=== PATIENT | female | born 1960 | race African-American/Black ===

== ENCOUNTER → 2017-06-28 | Outpatient (CLI) | payer OTHER ==
--- NOTE | 2017-06-28 15:15 | RADIOLOGY REPORT (SQ) ---
EXAM DESCRIPTION: LUMBAR SPINE COMPLETE COMPLETED DATE/TIME: 06/28/2017 1:51 pm REASON FOR STUDY: LOW BACK PAIN; LT SCIATICA M54.5 LOW BACK PAIN COMPARISON: None. NUMBER OF VIEWS: Five views including obliques. TECHNIQUE: AP, lateral, oblique, and sacral radiographic images acquired of the lumbar spine. LIMITATIONS: None. FINDINGS: MINERALIZATION: Normal. SEGMENTATION: L5 appears to represent a transitional vertebra. ALIGNMENT: Mild dextroscoliosis. VERTEBRAE: Maintained height. No fracture or worrisome bone lesion. DISCS: Preserved height. No significant osteophytes or end plate irregularity. POSTERIOR ELEMENTS: Pedicles and facets are intact. No pars defect or posterior arch defects. HARDWARE: None in the spine. PARASPINAL SOFT TISSUES: Normal. PELVIS: Intact as visualized. No fractures or worrisome bone lesions. SI joints intact. OTHER: No other significant finding. IMPRESSION: There is sacralization of L5. The study is otherwise unremarkable TECHNICAL DOCUMENTATION: JOB ID: [id number]- All Rights Reserved
== END ==
LOC: OD 13:22
PROVIDERS: ATTEND Obstetrics & Gynecology
DX: M54.42 Lumbago with sciatica, left side (principal)
CPT/HCPCS: 72110

== ENCOUNTER → 2017-07-06 | Outpatient (CLI) | payer OTHER ==
--- NOTE | 2017-07-06 18:00 | WOMENS IMAGING REPORT ---
EXAM DESCRIPTION: BILAT SCREENING MAMMO W/CAD COMPLETED DATE/TIME: 07/06/2017 7:50 am REASON FOR STUDY: SCREENING MAMMO Z12.31 ENCNTR SCREEN MAMMOGRAM FOR MALIGNANT NEOPLASM OF YELITZA COMPARISON: Multiple since 2008 TECHNIQUE: Standard craniocaudal and mediolateral oblique views of each breast recorded using digita l acquisition. LIMITATIONS: None. FINDINGS: Findings present which are benign by mammographic criteria. No suspicious masses, calcifi cations or architectural distortion. Pertinent benign findings: Benign skin calcifications. Stable asymmetrically dense tissue in the lef t upper outer quadrant as compared to studies dating back to 2008 Read with the assistance of CAD. .[facility] - R2 Cenova Version 1.3 .[facility] - R2 Cenova Version 1.3 .[facility] - R2 Cenova Version 2.4 .[facility] [place] Cenova Version 2.4 .[facility] - R2 Tele[employer] Professional Version 9.2 Benign mammographic findings may include one or more of the following: Smooth masses, popcorn/rim/co arse calcifications, asymmetries, post-procedure changes, and lesions with long-standing stability. IMPRESSION: BENIGN MAMMOGRAPHIC FINDINGS. BIRADS 2 BREAST DENSITY: c. The breasts are heterogeneously dense, which may obscure small masses. BIRAD: 2 BENIGN FINDING(S) RECOMMENDATION: ROUTINE SCREENING Please consider bilateral screening tomosynthesis in June 2018 COMMENT: The patient has been notified of the results by letter per SA requirements. Additional no tification policies are in place for contacting patient with suspicious or incomplete findings. Quality ID #[id number]: The [employer] recommends an annual screening mammogram for women aged 40 years or over. This facility utilizes a reminder system to ensure that all patients receive reminder letters, and/or direct phone calls for appointments. This includes reminders for routine scr eening mammograms, diagnostic mammograms, or other Breast Imaging Interventions when appropriate. Th is patient will be placed in the appropriate reminder system. The [employer] (ACR) has developed recommendations for screening MRI of the breast s in certain patient populations, to be used in conjunction with mammography. Breast MRI surveillanc e may be appropriate for women with more than 20% lifetime risk of developing breast cancer as deter mined by genetic testing, significant family history of the disease, or history of mantle radiation f or Hodgkins Disease. ACR Practice Guidelines 2008. TECHNICAL DOCUMENTATION: FINDING NUMBER: (1) ASSESSMENT: (1) JOB ID: [id number] [employer] [facility] [employer]- All Rights Reserved
== END ==
LOC: WI 07:01
PROVIDERS: ATTEND Obstetrics & Gynecology
DX: Z12.31 Encounter for screening mammogram for malignant neoplasm of breast (principal)
CPT/HCPCS: 77067; G0202

== ENCOUNTER 2017-08-12 11:39 | Emergency (ER) | payer OTHER ==
[2017-08-12 13:03] LABS: ABSOLUTE BASOPHILS # (AUTO) 0.1 10^3/uL (0.0-0.2); ABSOLUTE EOSINOPHILS # (AUTO) 0.2 10^3/uL (0.0-0.6); ABSOLUTE LYMPHOCYTES (AUTO) 1.5 10^3/uL (0.5-4.7); ABSOLUTE MONOCYTES (AUTO) 0.4 10^3/uL (0.1-1.4); ABSOLUTE NEUT (AUTO) 3.7 10^3/uL (1.7-8.2); EOSINOPHILS % (AUTO) 3.3 % (0-6); HEMATOCRIT 38.5 % (36.0-47.0); HEMOGLOBIN 13.4 g/dL (12.0-15.5); HGB HCT DIFFERENCE 1.7; LYMPHOCYTES % (AUTO) 25.6 % (13-45); MEAN CORPUSCULAR HEMOGLOBIN 33.3 pg (27.0-33.4); MEAN CORPUSCULAR HGB CONC 34.9 g/dL (32.0-36.0); MEAN CORPUSCULAR VOLUME 95 fl (80-97); MONOCYTES % (AUTO) 7.1 % (3-13); RED BLOOD COUNT 4.04 10^6/uL (3.72-5.28); RED CELL DISTRIBUTION WIDTH 13.8 % (11.5-14.0); WHITE BLOOD COUNT 5.9 10^3/uL (4.0-10.5)
--- NOTE | 2017-08-12 14:30 | ER Document Report ---
ED Medical Screen (RME) - General Mode of Arrival: Ambulatory Information source: Patient TRAVEL OUTSIDE OF THE [place] IN LAST 30 DAYS: No - HPI Patient complains to provider of: Syncopal episodes Onset: Other - 6 days ago Associated Symptoms: Other - see notes above <WING STEINER - Last Filed: 08/12/17 14:26> <STORM BARBER - Last Filed: 08/12/17 21:10> - General Chief Complaint: Fainting Stated Complaint: SYNCOPAL EPISODE/HEAD INJURY Time Seen by Provider: 08/12/17 12:37 Notes: 57-year-old female with history of anemia presents to the ED complaining of having 2 syncopal episodes the first 6 days ago and the second today. Patient reports that prior to both episodes she had a sneezing fit. Episodes were witnessed by family and explains that she only lost consciousness for a few seconds. Patient reports that she did hit her posterior head and left shoulder on a board. Patient complaining of headache and sinus congestion, but denies vision change, fever, vomiting, or diarrhea. Patient takes Radha and Vicks nasal rub for her sinus congestion. Patient denies history of MN or CVA. Patient is not on any blood thinning medication. (WING STEINER) - Related Data Allergies/Adverse Reactions: No Known Allergies Allergy (Verified 08/12/17 11:42) Home Medications: Current Home Medications Biotin 1 cap PO DAILY PRN 08/12/17 [History] Cyanocobalamin (Vitamin B-12) [Vitamin B-12] 1,000 mcg PO DAILY 08/12/17 [ History] Ergocalciferol (Vitamin D2) [Vitamin D] 400 unit PO DAILY 08/12/17 [History] Past Medical History - General Information source: Patient - Social History Chew tobacco use (# tins/day): No Frequency of alcohol use: Occasional Drug Abuse: None - Past Medical History Cardiac Medical History: Denies: Hx Coronary Artery Disease, Hx Heart Attack, Hx Hypertension Pulmonary Medical History: Denies: Hx Asthma, Hx Bronchitis, Hx COPD, Hx Pneumonia Neurological Medical History: Denies: Hx Cerebrovascular Accident, Hx Seizures Renal/ Medical History: Denies: Hx Peritoneal Dialysis Musculoskeltal Medical History: Denies Hx Arthritis Past Surgical History: Reports: Hx Hysterectomy - Immunizations Hx Diphtheria, Pertussis, Tetanus Vaccination: Yes <WING STEINER - Last Filed: 08/12/17 14:26> Review of Systems - Review of Systems Constitutional: No symptoms reported. denies: Fever EENT: No symptoms reported, Nose congestion, Other - sinus congestion. denies: Blurred vision, Double vision Cardiovascular: See HPI, Syncope Respiratory: No symptoms reported Gastrointestinal: No symptoms reported. denies: Diarrhea, Vomiting Genitourinary: No symptoms reported Female Genitourinary: No symptoms reported Musculoskeletal: No symptoms reported Skin: No symptoms reported Hematologic/Lymphatic: No symptoms reported Neurological/Psychological: See HPI, Lost consciousness, Headaches -: Yes All other systems reviewed and negative <WING STEINER - Last Filed: 08/12/17 14:26> Physical Exam - General General appearance: Alert In distress: None - HEENT Head: Normocephalic, Atraumatic Eyes: Normal Extraocular movements intact: Yes Pupils: PERRL - Respiratory Respiratory status: No respiratory distress Breath sounds: Normal - Cardiovascular Rhythm: Regular Heart sounds: Normal auscultation - Psychological Associated symptoms: Normal affect, Normal mood <WING STEINER - Last Filed: 08/12/17 14:26> - Vital signs Vitals: Temp Pulse Resp BP Pulse Ox 98.3 F 91 16 129/79 H 98 08/12/17 11:45 08/12/17 11:45 08/12/17 11:45 08/12/17 11:45 08/12/17 11:45 Course - Laboratory Result Diagrams: 08/12/17 12:59 08/12/17 12:59 <STEINERMONICA ANDUJARUR - Last Filed: 08/12/17 14:26> - Laboratory Result Diagrams: 08/12/17 12:59 08/12/17 14:14 <STORM BARBER - Last Filed: 08/12/17 21:10> - Re-evaluation Re-evalutation: 08/12/17 21:10 I personally performed the services described in the documentation, reviewed and edited the documentation which was dictated to the scribe in my presence, and it accurately records my words and actions. (STORM BARBER) - Vital Signs Vital signs: Temp Pulse Resp BP Pulse Ox 98.3 F 91 14 109/82 98 08/12/17 11:45 08/12/17 11:45 08/12/17 18:01 08/12/17 18:01 08/12/17 18:01 - Laboratory Laboratory results interpreted by me: 08/12/17 14:14 Chloride 109 H Total Protein 8.3 H Doctor's Discharge <WING STEINER - Last Filed: 08/12/17 14:26> <STORM BARBER - Last Filed: 08/12/17 21:10> - Discharge Clinical Impression: Syncope Qualifiers: Syncope type: unspecified Qualified Code(s): R55 - Syncope and collapse Condition: Stable Disposition: HOME, SELF-CARE Additional Instructions: Today we did not find any abnormalities. Your blood work was normal as was your CAT scan of your chest x-ray. I am still concerned by the fact that you pass out when you have sneezing fits. I would like you to have a Holter monitor. Please call Dr. Benson on Tuesday to try and set up an appointment to get a Holter monitor or an event monitor. Forms: Return to Work Referrals: ABHI DOMINGUEZ MD [Primary Care Provider] - Follow up as needed SAGRARIO BENSON MD [EMERITUS] - 08/15/17 Scribe Documentation - Scribe Written by Scribe:: Nury Johnson, 08/12/2017 1430 acting as scribe for :: Bebeto <WING STEINER - Last Filed: 08/12/17 14:26>
[2017-08-12 14:48] LABS: ALANINE AMINOTRANSFERASE 29 U/L (9-52); ALBUMIN 4.4 g/dL (3.5-5.0); ALKALINE PHOSPHATASE 102 U/L (38-126); ANION GAP 13 (5-19); ASPARTATE AMINO TRANSFERASE 27 U/L (14-36); BILIRUBIN,DIRECT 0.4 mg/dL (0.0-0.4); BILIRUBIN,TOTAL 0.7 mg/dL (0.2-1.3); BLOOD UREA NITROGEN 13 mg/dL (7-20); CALCIUM 9.6 mg/dL (8.4-10.2); CARBON DIOXIDE 22 mmol/L (22-30); CHLORIDE 109 mmol/L (98-107); CREATININE RESULT 0.67 mg/dL (0.52-1.25); GLUCOSE 78 mg/dL (75-110); POTASSIUM 4.3 mmol/L (3.6-5.0); TOTAL PROTEIN 8.3 g/dL (6.3-8.2)
--- NOTE | 2017-08-12 15:32 | RADIOLOGY REPORT (SQ) ---
EXAM DESCRIPTION: CT HEAD WITHOUT COMPLETED DATE/TIME: 08/12/2017 3:23 pm REASON FOR STUDY: recurrent LOC COMPARISON: None. TECHNIQUE: Axial images acquired through the brain without intravenous contrast. Images reviewed wi th bone, brain and subdural windows. Images stored on PACS. All CT scanners at this facility use dose modulation, iterative reconstruction, and/or weight based d osing when appropriate to reduce radiation dose to as low as reasonably achievable (ALARA). [facility]: Dose Right [facility]: CareDose [facility]: Dose Right [facility]: Teradose 4D [facility]: [place] RADIATION DOSE: mGy. LIMITATIONS: None. FINDINGS: VENTRICLES: Normal size and contour. CEREBRUM: No masses. No hemorrhage. No midline shift. No evidence for acute infarction. Normal gra y/white matter differentiation. No areas of low density in the white matter. CEREBELLUM: No masses. No hemorrhage. No alteration of density. No evidence for acute infarction. EXTRAAXIAL SPACES: No fluid collections. No masses. ORBITS AND GLOBE: No intra- or extraconal masses. Normal contour of globe without masses. CALVARIUM: No fracture. PARANASAL SINUSES: No fluid or mucosal thickening. SOFT TISSUES: No mass or hematoma. OTHER: No other significant finding. IMPRESSION: NORMAL BRAIN CT WITHOUT CONTRAST. EVIDENCE OF ACUTE STROKE: NO. COMMENT: Quality ID # [id number]: Final reports with documentation of one or more dose reduction techniques (e.g., Automated exposure control, adjustment of the mA and/or kV according to patient size, use of iterative reconstruction technique) TECHNICAL DOCUMENTATION: JOB ID: [id number] [employer]- All Rights Reserved
--- NOTE | 2017-08-12 15:39 | RADIOLOGY REPORT (SQ) ---
EXAM DESCRIPTION: CHEST PA/LAT COMPLETED DATE/TIME: 08/12/2017 3:28 pm REASON FOR STUDY: recurrent LOC COMPARISON: 09/16/2009. EXAM PARAMETERS: NUMBER OF VIEWS: two views TECHNIQUE: Digital Frontal and Lateral radiographic views of the chest acquired. RADIATION DOSE: NA LIMITATIONS: none FINDINGS: LUNGS AND PLEURA: No opacities, masses or pneumothorax. No pleural effusion. MEDIASTINUM AND HILAR STRUCTURES: No masses or contour abnormalities. HEART AND VASCULAR STRUCTURES: Heart normal size. No evidence for failure. BONES: No acute findings. HARDWARE: None in the chest. OTHER: No other significant finding. IMPRESSION: NO SIGNIFICANT RADIOGRAPHIC FINDING IN THE CHEST. TECHNICAL DOCUMENTATION: JOB ID: [id number] [employer]- All Rights Reserved
--- NOTE | 2017-08-12 16:01 | ER Document Report ---
ED General - General Mode of Arrival: Ambulatory Information source: Patient TRAVEL OUTSIDE OF THE [place] IN LAST 30 DAYS: No <KYM HOLCOMB - Last Filed: 08/12/17 18:12> <GRACE HARKINS - Last Filed: 08/12/17 22:40> - General Chief Complaint: Fainting Stated Complaint: SYNCOPAL EPISODE/HEAD INJURY Time Seen by Provider: 08/12/17 12:37 Notes: Patient is a 57 year old female presenting to the emergency department complaining of a syncopal episode onset. Patient states that she would sneeze several times, back to back, and then proceeded to have a syncopal episode. Patient states her first episode was on Tuesday. Patient states that she had some numbness on her left arm yesterday and a headache this afternoon, not related to the syncopal episode. Patient denies any vomiting, trouble breathing , seizures, nausea, vomiting, diarrhea, or fever. (KYM HOLCOMB) - Related Data Allergies/Adverse Reactions: No Known Allergies Allergy (Verified 08/12/17 11:42) Home Medications: Current Home Medications Biotin 1 cap PO DAILY PRN 08/12/17 [History] Cyanocobalamin (Vitamin B-12) [Vitamin B-12] 1,000 mcg PO DAILY 08/12/17 [ History] Ergocalciferol (Vitamin D2) [Vitamin D] 400 unit PO DAILY 08/12/17 [History] Past Medical History - General Information source: Patient - Social History Smoking Status: Current Every Day Smoker Chew tobacco use (# tins/day): No Frequency of alcohol use: Occasional Drug Abuse: None Patient has suicidal ideation: No Patient has homicidal ideation: No Past Surgical History: Reports: Hx Hysterectomy - Immunizations Hx Diphtheria, Pertussis, Tetanus Vaccination: Yes <KYM HOLCOMB - Last Filed: 08/12/17 18:12> - Social History Family History: Reviewed & Not Pertinent. denies: CAD <GRACE HARKINS - Last Filed: 08/12/17 22:40> Review of Systems - Review of Systems Constitutional: No symptoms reported EENT: See HPI, Other - Sneezing Cardiovascular: No symptoms reported Respiratory: No symptoms reported Gastrointestinal: No symptoms reported Genitourinary: No symptoms reported Female Genitourinary: No symptoms reported Musculoskeletal: No symptoms reported Skin: No symptoms reported Hematologic/Lymphatic: No symptoms reported Neurological/Psychological: See HPI, Lost consciousness, Numbness -: Yes All other systems reviewed and negative <KYM HOLCOMB - Last Filed: 08/12/17 18:12> Physical Exam <KYM HOLCOMB - Last Filed: 08/12/17 18:12> <GRACE HARKINS - Last Filed: 08/12/17 22:40> - Vital signs Vitals: Temp Pulse Resp BP Pulse Ox 98.3 F 91 16 129/79 H 98 08/12/17 11:45 08/12/17 11:45 08/12/17 11:45 08/12/17 11:45 08/12/17 11:45 - Notes Notes: GENERAL: Alert, interacts well. No acute distress. HEAD: Normocephalic, atraumatic. EYES: Pupils equal, round, and reactive to light. Extraocular movements intact. ENT: Oral mucosa moist, tongue midline. NECK: Full range of motion. Supple. Trachea midline. LUNGS: Slight crackles at bases bilaterally, no wheezes, rales, or rhonchi. No respiratory distress. HEART: Regular rate and rhythm. No murmurs, gallops, or rubs. ABDOMEN: Soft, non-tender. Non-distended. Bowel sounds present in all 4 quadrants. EXTREMITIES: Moves all 4 extremities spontaneously. No edema, radial and dorsalis pedis pulses 2/4 bilaterally. No cyanosis. NEUROLOGICAL: Alert and oriented x3. Normal speech. PSYCH: Normal affect, normal mood. SKIN: Warm, dry, normal turgor. No rashes or lesions noted. (KYM HOLCOMB) Course - Laboratory Result Diagrams: 08/12/17 12:59 08/12/17 14:14 <KYM HOLCOMB - Last Filed: 08/12/17 18:12> - Laboratory Result Diagrams: 08/12/17 12:59 08/12/17 14:14 <GRACE HARKINS - Last Filed: 08/12/17 22:40> - Re-evaluation Re-evalutation: 08/12/17 18:04 CBC unremarkable, CMP unremarkable, cardiac enzymes negative, EKG is nonischemic , there is no ectopy, CT scan of the head does not show any intracranial hemorrhage or mass, chest x-ray does not show infiltrate, mass or pneumothorax. Patient did have an episode of sneezing here which did not trigger any changes beyond mild tachycardia on the monitor. At this point I recommended to the patient that she be discharged to home and follow-up with a scene and lighting design lecturer as an outpatient on Tuesday for Holter monitor. Patient and family members are in agreement with this plan. (GRACE HARKINS) - Vital Signs Vital signs: Temp Pulse Resp BP Pulse Ox 98.3 F 91 14 109/82 98 08/12/17 11:45 08/12/17 11:45 08/12/17 18:01 08/12/17 18:01 08/12/17 18:01 - Laboratory Laboratory results interpreted by me: 08/12/17 14:14 Chloride 109 H Total Protein 8.3 H - EKG Interpretation by Me Additional EKG results interpreted by me: 08/12/17 18:04 EKG shows sinus rhythm at a rate of 70, no ST segment elevations or depressions , normal axis, normal intervals, there are T-wave inversions noted in V1 through V4, no old EKG available for comparison. (GRACE HARKINS) Discharge <KYM HOLCOMB - Last Filed: 08/12/17 18:12> <GRACE HARKINS - Last Filed: 08/12/17 22:40> - Discharge Clinical Impression: Syncope Qualifiers: Syncope type: unspecified Qualified Code(s): R55 - Syncope and collapse Condition: Stable Disposition: HOME, SELF-CARE Additional Instructions: Today we did not find any abnormalities. Your blood work was normal as was your CAT scan of your chest x-ray. I am still concerned by the fact that you pass out when you have sneezing fits. I would like you to have a Holter monitor. Please call Dr. Benson on Tuesday to try and set up an appointment to get a Holter monitor or an event monitor. Forms: Return to Work Referrals: ABHI DOMINGUEZ MD [Primary Care Provider] - Follow up as needed SAGRARIO BENSON MD [EMERITUS] - 08/15/17 Scribe Attestation: 08/12/17 22:40 I personally performed the services described in the documentation, reviewed and edited the documentation which was dictated to the scribe in my presence, and it accurately records my words and actions. (GRACE HARKINS) Scribe Documentation - Scribe Written by Nury:: Nury Cuenca, 08/12/2017 16:49 acting as scribe for :: Reji <KYM HOLCOMB - Last Filed: 08/12/17 18:12>
[2017-08-12 16:43] LABS: CREATINE KINASE MB 1.55 ng/mL (<4.55)
[2017-08-12 16:48] LABS: TROPONIN I < 0.012 ng/mL
[2017-08-12 18:25] VITALS: BP 109/82
--- NOTE | 2017-08-13 20:58 | EKG REPORT ---
SEVERITY:- ABNORMAL ECG - SINUS RHYTHM NONSPECIFIC T ABNORMALITIES, ANTERIOR LEADS : Confirmed by: Raffi Benson MD 12-Aug-2017 19:53:08
== END 2017-08-12 18:34 | disposition home or self-care (01) ==
LOC: ER 11:39
DX: R55 Syncope and collapse (principal); F17.200 Nicotine dependence, unspecified, uncomplicated
CPT/HCPCS: 36415; 70450; 71020; 80053; 82550; 82553; 84484; 85025; 93005; 93010; 99285

== ENCOUNTER → 2017-09-21 | Outpatient (CLI) | payer OTHER ==
--- NOTE | 2017-09-21 17:15 | RADIOLOGY REPORT (SQ) ---
EXAM DESCRIPTION: LUMBAR SPINE COMPLETE COMPLETED DATE/TIME: 09/21/2017 5:07 pm REASON FOR STUDY: LOW BACK PAIN M54.5 LOW BACK PAIN COMPARISON: 06/28/2017. NUMBER OF VIEWS: Five views including obliques. TECHNIQUE: AP, lateral, oblique, and sacral radiographic images acquired of the lumbar spine. LIMITATIONS: None. FINDINGS: MINERALIZATION: Normal. SEGMENTATION: Transitional lumbosacral vertebra. ALIGNMENT: Normal. VERTEBRAE: Maintained height. No fracture or worrisome bone lesion. DISCS: Preserved height. No significant osteophytes or end plate irregularity. POSTERIOR ELEMENTS: Pedicles and facets are intact. No pars defect or posterior arch defects. HARDWARE: None in the spine. PARASPINAL SOFT TISSUES: Normal. PELVIS: Intact as visualized. No fractures or worrisome bone lesions. SI joints intact. OTHER: No other significant finding. IMPRESSION: NORMAL 5 VIEW LUMBAR SPINE. TECHNICAL DOCUMENTATION: JOB ID: [id number] [employer]- All Rights Reserved
[2017-09-21 18:21] LABS: HEMATOCRIT 37.7 % (36.0-47.0); HEMOGLOBIN 12.6 g/dL (12.0-15.5); MEAN CORPUSCULAR HEMOGLOBIN 32.2 pg (27.0-33.4); MEAN CORPUSCULAR HGB CONC 33.4 g/dL (32.0-36.0); MEAN CORPUSCULAR VOLUME 97 fl (80-97); PLATELET COUNT 292 10^3/uL (150-450); RED BLOOD COUNT 3.91 10^6/uL (3.72-5.28); RED CELL DISTRIBUTION WIDTH 13.8 % (11.5-14.0); WHITE BLOOD COUNT 5.2 10^3/uL (4.0-10.5)
[2017-09-21 18:54] LABS: ALANINE AMINOTRANSFERASE 23 U/L (9-52); ALBUMIN 4.7 g/dL (3.5-5.0); ALKALINE PHOSPHATASE 90 U/L (38-126); ANION GAP 10 (5-19); ASPARTATE AMINO TRANSFERASE 29 U/L (14-36); BILIRUBIN,DIRECT 0.3 mg/dL (0.0-0.4); BILIRUBIN,TOTAL 0.5 mg/dL (0.2-1.3); BLOOD UREA NITROGEN 13 mg/dL (7-20); CALCIUM 10.2 mg/dL (8.4-10.2); CARBON DIOXIDE 26 mmol/L (22-30); CHLORIDE 106 mmol/L (98-107); GLUCOSE 81 mg/dL (75-110); POTASSIUM 4.3 mmol/L (3.6-5.0); SODIUM 141.9 mmol/L (137-145); TOTAL PROTEIN 8.6 g/dL (6.3-8.2)
== END ==
LOC: OD 16:40
PROVIDERS: ATTEND Obstetrics & Gynecology
DX: M54.5 Low back pain (principal); R42 Dizziness and giddiness; R55 Syncope and collapse; Z91.81 History of falling
CPT/HCPCS: 36415; 72110; 80053; 82607; 85027

== ENCOUNTER → 2017-10-11 | Outpatient (CLI) | payer OTHER ==
--- NOTE | 2017-10-11 15:59 | RADIOLOGY REPORT (SQ) ---
EXAM DESCRIPTION: CAROTID DOPPLER COMPLETED DATE/TIME: 10/11/2017 1:29 pm REASON FOR STUDY: SYNCOPE R55 SYNCOPE AND COLLAPSE COMPARISON: None. TECHNIQUE: Grayscale ultrasound, Doppler velocity and spectra, and color Doppler images acquired of the extra-cranial carotid and vertebral arteries. Images stored on PACS. LIMITATIONS: None. FINDINGS: RIGHT CAROTID CCA Velocities: Within normal limits. ICA Velocities Peak systolic 0.68 m/s. End diastolic 0.24 m/s. Proximal ICA/CCA peak systolic ratio 0.7. Spectra normal. No significant plaque. LEFT CAROTID CCA Velocities: Within normal limits. ICA Velocities Peak systolic 0.93 m/s. End diastolic 0.45 m/s. Proximal ICA/CCA peak systolic ratio 0.9. Spectra normal. No significant plaque. VERTEBRAL ARTERIES: Antegrade flow. Normal waveforms. SUBCLAVIAN ARTERIES: Not imaged. OTHER: No other significant finding. IMPRESSION: NO HEMODYNAMICALLY SIGNIFICANT STENOSIS. COMMENT: Quality ID #[id number]: Velocity criteria are extrapolated from the diameter data as defined by t he Society of Radiologists in Ultrasound Consensus Conference. Radiology 2003: 229; 340-346. TECHNICAL DOCUMENTATION: JOB ID: [id number] [employer]- All Rights Reserved
== END ==
LOC: SP 12:16
PROVIDERS: ATTEND Obstetrics & Gynecology
DX: R55 Syncope and collapse (principal)
CPT/HCPCS: 93880

== ENCOUNTER 2018-01-19 23:23 | Emergency (ER) | payer OTHER ==
[2018-01-20 01:08] LABS: ABSOLUTE BASOPHILS # (AUTO) 0.1 10^3/uL (0.0-0.2); ABSOLUTE EOSINOPHILS # (AUTO) 0.3 10^3/uL (0.0-0.6); ABSOLUTE LYMPHOCYTES (AUTO) 1.5 10^3/uL (0.5-4.7); ABSOLUTE MONOCYTES (AUTO) 0.3 10^3/uL (0.1-1.4); ABSOLUTE NEUT (AUTO) 2.9 10^3/uL (1.7-8.2); EOSINOPHILS % (AUTO) 6.5 % (0-6); HEMATOCRIT 36.1 % (36.0-47.0); HEMOGLOBIN 12.6 g/dL (12.0-15.5); LYMPHOCYTES % (AUTO) 29.7 % (13-45); MEAN CORPUSCULAR HEMOGLOBIN 33.7 pg (27.0-33.4); MEAN CORPUSCULAR HGB CONC 34.9 g/dL (32.0-36.0); MEAN CORPUSCULAR VOLUME 96 fl (80-97); MONOCYTES % (AUTO) 6.7 % (3-13); PLATELET COUNT 274 10^3/uL (150-450); RED BLOOD COUNT 3.75 10^6/uL (3.72-5.28); RED CELL DISTRIBUTION WIDTH 13.4 % (11.5-14.0); SEGMENTED NEUTROPHILS % (AUTO) 56.1 % (42-78); TOTAL CELLS COUNTED % (AUTO) 100 %; WHITE BLOOD COUNT 5.1 10^3/uL (4.0-10.5)
[2018-01-20 01:35] LABS: ANION GAP 15 (5-19); BLOOD UREA NITROGEN 17 mg/dL (7-20); CALCIUM 9.6 mg/dL (8.4-10.2); CARBON DIOXIDE 24 mmol/L (22-30); CHLORIDE 109 mmol/L (98-107); GLUCOSE 111 mg/dL (75-110); POTASSIUM 4.1 mmol/L (3.6-5.0); SODIUM 148.1 mmol/L (137-145)
[2018-01-20] MEDS ORDERED: ALBUTEROL SULFATE HFA (90 MCG/PUFF) 8 GM MDI (1 MDI/ER DISP) IH ONE (03:12)
--- NOTE | 2018-01-20 03:14 | ER Document Report ---
ED General - General Chief Complaint: Chest Pressure Stated Complaint: VAGINAL PAIN Time Seen by Provider: 01/20/18 00:39 Notes: Patient is a pleasant 57-year-old female comes with chief complaints. First complaint is of difficulty breathing is been ongoing for approximately 9 months. She denies any chest pain. She does see Dr. Torres, animal laboratory helper, she said did several tests and did not find anything concerning on her testing. She says that difficulty breathing seems to occur when she starts coughing. She said she gets into a coughing fit and then gags and then sometimes vomits. She says when she is gagging is when she feels even more short of breath. She said after these episodes and she is no longer short of breath. She is a smoker. Patient says that she has been smoking most her life. She says few months ago she tired and has increased her smoking since retiring. She has a second complaint which is of some vaginal swelling that she noticed tonight. That is what actually brought her into the ER tonight. She says that she does not have any difficulty urinating. No difficulty with bowel movements. She notes that whenever she did bear down or use the bathroom she would notice a sensation of swelling within the vagina itself. She does have a previous history of hysterectomy. Her a/c technician Dr. Greer. She denies actual protrusion of vaginal tissue outside of the vaginal introitus. Bleeding. No fevers. TRAVEL OUTSIDE OF THE [place] IN LAST 30 DAYS: No - Related Data Allergies/Adverse Reactions: No Known Allergies Allergy (Verified 08/12/17 11:42) Past Medical History - Social History Smoking Status: Unknown if Ever Smoked Frequency of alcohol use: None Drug Abuse: None Family History: Reviewed & Not Pertinent. denies: CAD Patient has suicidal ideation: No Patient has homicidal ideation: No - Past Medical History Cardiac Medical History: Denies: Hx Coronary Artery Disease, Hx Heart Attack, Hx Hypertension Pulmonary Medical History: Denies: Hx Asthma, Hx Bronchitis, Hx COPD, Hx Pneumonia Neurological Medical History: Denies: Hx Cerebrovascular Accident, Hx Seizures Renal/ Medical History: Denies: Hx Peritoneal Dialysis Musculoskeltal Medical History: Denies Hx Arthritis Past Surgical History: Reports: Hx Hysterectomy - Immunizations Hx Diphtheria, Pertussis, Tetanus Vaccination: Yes Review of Systems - Review of Systems Notes: My Normal Review Basic REVIEW OF SYSTEMS: CONSTITUTIONAL : Denies fever, chills, or sweats. Denies recent illness. EENT: Denies eye, ear, throat, or mouth pain or symptoms. Denies nasal or sinus congestion. CARDIOVASCULAR: Denies chest pain. RESPIRATORY: Coughing and difficulty breathing. GASTROINTESTINAL: Denies abdominal pain. Denies nausea, vomiting, or diarrhea. Denies constipation. Last BM: GENITOURINARY: Denies difficulty urinating, painful urination, burning, frequency, or blood in urine. FEMALE GENITOURINARY: Denies vaginal bleeding, abnormal or irregular periods. MUSCULOSKELETAL: Denies neck or back pain or joint pain or swelling. SKIN: Denies rash or skin lesions. NEUROLOGICAL: Denies altered mental status or loss of consciousness. Denies headache. Denies weakness or paralysis or loss of use of either side. Denies problems with gait or speech. Denies sensory or motor loss. ALL OTHER SYSTEMS REVIEWED AND NEGATIVE. Physical Exam - Vital signs Vitals: Temp Pulse Resp BP Pulse Ox 98.3 F 89 20 139/77 H 94 01/19/18 23:30 01/19/18 23:30 01/19/18 23:30 01/19/18 23:30 01/19/18 23:30 - Notes Notes: General Appearance: Well nourished, alert, cooperative, no acute distress, no obvious discomfort. Appearing. No distress. Vitals: reviewed, See vital signs table. Head: no swelling or tenderness to the head Eyes: PERRL, EOMI, Conjuctiva clear Mouth: No decreasd moisture Throat: No tonsillar inflammation, No airway obstruction, No lymphadenopathy Neck: Supple, no neck tenderness Lungs: No wheezing, No rales, No rhonci, No accessory muscle use, good air exchange bilaterally. Heart: Normal rate, Regular rythm, No murmur, no rub Abdomen: Normal BS, soft, No rigidity, No abdominal tenderness, No guarding, no rebound, no abdominal masses, no organomegaly Pelvic exam: Pelvic exam was performed with lorena Rae. Initial pelvic exam patient had anterior vaginal wall prolapse. The prolapse was not extending outside the vaginal introitus. We got a speculum. When I came back with th speculum the prolapse had resolved. No bleeding vaginal vault. No abnormal discharge. Extremities: strength 5/5 in all extremities, good pulses in all extremities, no swelling or tenderness in the extremities, no edema. Skin: warm, dry, appropriate color, no rash Neuro: speech clear, oriented x 3, normal affect, responds appropriately to questions. Course - Re-evaluation Re-evalutation: 01/20/18 03:24 I did obtain a d-dimer and blood work to make sure the patient was not significantly anemic and to also look for evidence of PE. I think she is very low risk for PE and that she is no hypoxemia, no tachycardiac, no tachypnea at rest. Also presents from an ongoing for 9 months and they are associated with coughing and she has no associated chest pain whatsoever. She did however have a little bit of tachycardia when she got up and moved around and I therefore did obtain a d-dimer which was negative. I do not think CT of the chest is necessary at this time. Chest x-ray shows no concerning findings. On exam patient did have what appears anterior vaginal wall prolapse most likely from the bladder pushed down on vaginal wall. She has had previous pelvic surgeries which put her at risk for the above-mentioned findings. I informed her that she is to follow-up with her a/c technician and told her that there are options such as a pessary or sometimes surgery depending with her a/c technician which she will be best for her. She does have a a/c technician named Dr. greer who she said she would call to make a close follow-up appointment. I strongly encouraged her return to ER immediately if she has difficulty breathing, fevers , vaginal prolapse causing vaginal tissue pushing from the vaginal introitus, any vaginal bleeding, difficulty urinating, or she feels unwell. Patient agrees with plan will be discharged home. I did give the patient inhaler bricks appears that her difficulty breathing episodes occur when she starts coughing and gagging on mucus with coughing. She is a long-term smoking inhaler might help if she develops a coughing fit which may be related to bronchospasm. Dictation of this chart was performed using voice recognition software; therefore, there may be some unintended grammatical errors. - Vital Signs Vital signs: Temp Pulse Resp BP Pulse Ox 98.3 F 89 20 139/77 H 94 01/19/18 23:30 01/19/18 23:30 01/19/18 23:30 01/19/18 23:30 01/19/18 23:30 - Laboratory Result Diagrams: 01/20/18 00:59 01/20/18 00:59 Laboratory results interpreted by me: 01/20/18 01/20/18 00:59 00:59 MCH 33.7 H Eosinophils % 6.5 H Sodium 148.1 H Chloride 109 H Glucose 111 H Discharge - Discharge Clinical Impression: Prolapse of anterior vaginal wall Condition: Good Disposition: HOME, SELF-CARE Additional Instructions: Please follow up closely with your [facility] within a week for reevaluation and to discuss treatment options. You appear to have weakening of the anterior vaginal wall allowing the bladder to push down on the vaginal wall. please return to the ER immediately if you develop difficulty urinating, fevers, vaginal bleeding, or prolapse of vaginal tissue coming out of the vaginal opening. Please stop smoking. please use the inhaler as 2 puffs every 4 hours as needed for coughing or wheezing. Follow up closely with your doctor for reevaluation in regards to your trouble breathing. Forms: Smoking Cessation Education, Return to Work
[2018-01-20 03:38] VITALS: BP 119/77
--- NOTE | 2018-01-20 04:29 | RADIOLOGY REPORT (SQ) ---
EXAM DESCRIPTION: XR CHEST 1 VIEW CLINICAL HISTORY: 57 years Female, [place]SY[place] COMPARISON: 08/12/2017 NUMBER OF VIEWS/TECHNIQUE: 1/AP FINDINGS: Adequate lung volume, clear parenchyma, normal cardiac silhouette, and intact bony thorax. IMPRESSION: No acute cardiopulmonary findings.
--- NOTE | 2018-01-21 08:58 | EKG REPORT ---
SEVERITY:- BORDERLINE ECG - SINUS RHYTHM BORDERLINE PROLONGED QT INTERVAL NONSPECIFIC T INVERSIONS ANTEROSEPTAL LEADS UNCHANGED FROM 08/12/17. : Confirmed by: Raffi Benson MD 21-Jan-2018 08:57:08
== END 2018-01-20 03:38 | disposition home or self-care (01) ==
LOC: ER 23:23
DX: N81.10 Cystocele, unspecified (principal); R07.9 Chest pain, unspecified; R10.2 Pelvic and perineal pain; Z90.710 Acquired absence of both cervix and uterus
CPT/HCPCS: 93005; 99284; 36415; 85025; 80048; 85379; 71045; 93010; J3490

== ENCOUNTER 2018-09-04 01:54 | Emergency (ER) | payer OTHER ==
[2018-09-04] MEDS ORDERED: DICYCLOMINE HCL INJ 20 MG/2 ML AMPULE IM ONE (02:06)
[2018-09-04] MEDS ORDERED: NORMAL SALINE 1000 ML 1,000 ML IV ONE (02:06)
[2018-09-04] MEDS ORDERED: ONDANSETRON HCL INJ/PF 4 MG/2 ML SDV IV ONE (02:06)
[2018-09-04 02:37] LABS: ABSOLUTE EOSINOPHILS # (AUTO) 0.1 10^3/uL (0.0-0.6); ABSOLUTE LYMPHOCYTES (AUTO) 0.9 10^3/uL (0.5-4.7); ABSOLUTE MONOCYTES (AUTO) 0.2 10^3/uL (0.1-1.4); ABSOLUTE NEUT (AUTO) 3.5 10^3/uL (1.7-8.2); BASOPHILS % (AUTO) 0.7 % (0-2); EOSINOPHILS % (AUTO) 2.6 % (0-6); HEMOGLOBIN 12.5 g/dL (12.0-15.5); LYMPHOCYTES % (AUTO) 17.8 % (13-45); MEAN CORPUSCULAR HEMOGLOBIN 32.4 pg (27.0-33.4); MEAN CORPUSCULAR HGB CONC 33.8 g/dL (32.0-36.0); MEAN CORPUSCULAR VOLUME 96 fl (80-97); MONOCYTES % (AUTO) 5.1 % (3-13); PLATELET COUNT 278 10^3/uL (150-450); RED BLOOD COUNT 3.85 10^6/uL (3.72-5.28); RED CELL DISTRIBUTION WIDTH 13.3 % (11.5-14.0); SEGMENTED NEUTROPHILS % (AUTO) 73.8 % (42-78); TOTAL CELLS COUNTED % (AUTO) 100 %; WHITE BLOOD COUNT 4.8 10^3/uL (4.0-10.5)
--- NOTE | 2018-09-04 02:55 | ER Document Report ---
ED General - General Chief Complaint: Nausea/Vomiting Stated Complaint: CRAMPING,NAUSEA,VOMITTING Time Seen by Provider: 09/04/18 02:00 Notes: Patient is a 58-year-old female presents with complaint of nausea and vomiting. She says that she has pain and cramping that goes into her abdomen into her back and down into her legs. Symptoms started tonight. No fevers. No diarrhea. Last bowel movement was this morning was normal. No blood in her stool. No blood in her emesis. No recent abdominal surgeries. No other complaints at this time. No dysuria. TRAVEL OUTSIDE OF THE [place] IN LAST 30 DAYS: No - Related Data Allergies/Adverse Reactions: No Known Allergies Allergy (Verified 08/12/17 11:42) Past Medical History - Social History Smoking Status: Unknown if Ever Smoked Frequency of alcohol use: None Drug Abuse: None Family History: Reviewed & Not Pertinent. denies: CAD Patient has suicidal ideation: No Patient has homicidal ideation: No - Past Medical History Cardiac Medical History: Denies: Hx Coronary Artery Disease, Hx Heart Attack, Hx Hypertension Pulmonary Medical History: Denies: Hx Asthma, Hx Bronchitis, Hx COPD, Hx Pneumonia Neurological Medical History: Denies: Hx Cerebrovascular Accident, Hx Seizures Renal/ Medical History: Denies: Hx Peritoneal Dialysis Musculoskeletal Medical History: Denies Hx Arthritis Past Surgical History: Reports: Hx Hysterectomy - Immunizations Hx Diphtheria, Pertussis, Tetanus Vaccination: Yes Review of Systems - Review of Systems Notes: My Normal Review Basic REVIEW OF SYSTEMS: CONSTITUTIONAL : Denies fever, chills, or sweats. Denies recent illness. CARDIOVASCULAR: Denies chest pain. RESPIRATORY: Denies cough, cold, or chest congestion. Denies shortness of breath, difficulty breathing, or wheezing. GASTROINTESTINAL: Crampy abdominal pain. Some vomiting. GENITOURINARY: Denies difficulty urinating, painful urination, burning, frequency, or blood in urine. MUSCULOSKELETAL: Cramping of muscles in the lower back. SKIN: Denies rash or skin lesions. HEMATOLOGIC : Denies easy bruising or bleeding. LYMPHATIC: Denies swollen, enlarged glands. NEUROLOGICAL: Denies sensory or motor loss. ALL OTHER SYSTEMS REVIEWED AND NEGATIVE. Physical Exam - Vital signs Vitals: Temp 98.0 F 09/04/18 02:09 - Notes Notes: General Appearance: Well nourished, alert, cooperative, no acute distress, moderate obvious discomfort. Vitals: reviewed, See vital signs table. Head: no swelling or tenderness to the head Eyes: PERRL, EOMI, Conjuctiva clear Mouth: No decreasd moisture Lungs: No wheezing, No rales, No rhonci, No accessory muscle use, good air exchange bilaterally. Heart: Normal rate, Regular rythm, No murmur, no rub Abdomen: Normal BS, soft, No rigidity, No reproducible abdominal tenderness to palpation, No guarding, no rebound, no abdominal masses, no organomegaly Back: Some pain to palpation over the lumbar paraspinal musculature. No pain to palpation over the lumbosacral joint. Extremities: strength 5/5 in all extremities, good pulses in all extremities, no swelling or tenderness in the extremities, no edema. Skin: warm, dry, appropriate color, no rash Neuro: speech clear, oriented x 3, normal affect, responds appropriately to questions. Course - Re-evaluation Re-evalutation: 09/04/18 04:20 When the patient stood up to leave she says that she has too much spasm in her back that goes into her legs when she stands up. She says she does not want pain medicine. She says she wants something to stop the spasming. I will order some Valium to try to help with the muscle spasms. 09/04/18 05:55 Volume greatly increased her pain. Patient was discharged home. I wrote a prescription for Skelaxin to help with muscle spasms. Initially it was not exactly clear that her back pain is been chronic however when I went to [facility] garcia the patient the was in the room is able to give further history. He says that the patient's been doing with his back pain rating into her legs for a while now. She has had MRIs her primary care doctor. MRI does not show any acute abnormality however she gets these recurrent spasms of pain throughout her back that radiate into her legs. She is being referred to a restless. She is not having cauda equina type symptoms. No loss of bowel control. No urinary retention. She does not have actual true weakness in her legs however when she tried to stand up she started get spasm back into her back and as well we gave her the Valium. This did help. It is unclear if the vomiting is actually related to the pain she is having something else. Patient stood up and start having spasm and muscle cramps into her back and legs she said she started get nauseous again. I did give her Zofran and will prescribe her some Zofran to go home with. We will place her on Skelaxin as a muscle relaxer. Encouraged her return to ER if she has worsening of her symptoms or intractable pain. Dictation of this chart was performed using voice recognition software; therefore, there may be some unintended grammatical errors. - Vital Signs Vital signs: Temp Pulse Resp BP Pulse Ox 97.9 F 84 13 145/64 H 96 09/04/18 04:59 09/04/18 04:59 09/04/18 04:59 09/04/18 04:59 09/04/18 04:59 - Laboratory Result Diagrams: 09/04/18 02:20 09/04/18 02:20 Laboratory results interpreted by me: 09/04/18 02:20 Chloride 109 H Total Protein 8.7 H - EKG Interpretation by Me Additional EKG results interpreted by me: 09/04/18 02:54 EKG is reviewed and interpreted by me. EKG shows sinus rhythm with a rate of [address] segment elevation. Some T wave inversions in the anterior lateral leads which she has had similar to her previous EKG in January 20, 2018. They are a little bit more pronounced on this EKG. [place] interval, QRS duration, QT intervals are within normal range. Discharge - Discharge Clinical Impression: Vomiting Condition: Good Disposition: HOME, SELF-CARE Additional Instructions: Please take the muscle relaxer (skelaxin) as prescribed. I have also prescribed some medicine for vomiting. Please follow up closely with your primary care physiciain. please return to the ER if you have recurrent vomiting, worsening abdominal pain, fevers, or feel unwell. Prescriptions: Dicyclomine HCl [Bentyl 10 mg Capsule] 1 cap PO TID PRN #15 cap PRN Reason: abdominal pain Metaxalone [Skelaxin 800 mg Tablet] 800 mg PO ASDIR PRN #20 tablet PRN Reason: Referrals: CHRISTIANO MEYERS PA-C [Primary Care Provider] - Follow up as needed
[2018-09-04 02:57] LABS: ALANINE AMINOTRANSFERASE 23 U/L (9-52); ALBUMIN 4.6 g/dL (3.5-5.0); ALKALINE PHOSPHATASE 88 U/L (38-126); ANION GAP 9 (5-19); ASPARTATE AMINO TRANSFERASE 23 U/L (14-36); BILIRUBIN,DIRECT 0.3 mg/dL (0.0-0.4); BILIRUBIN,TOTAL 0.9 mg/dL (0.2-1.3); BLOOD UREA NITROGEN 14 mg/dL (7-20); CALCIUM 9.8 mg/dL (8.4-10.2); CARBON DIOXIDE 23 mmol/L (22-30); CHLORIDE 109 mmol/L (98-107); GLUCOSE 96 mg/dL (75-110); POTASSIUM 4.1 mmol/L (3.6-5.0); SODIUM 141.2 mmol/L (137-145); TOTAL PROTEIN 8.7 g/dL (6.3-8.2)
[2018-09-04] MEDS ORDERED: ONDANSETRON ODT 4 MG TAB (6 TAB/ER DISP) PO PRN (03:54)
[2018-09-04] MEDS ORDERED: ONDANSETRON 4 MG TAB.RAPDIS PO ONE (03:56)
[2018-09-04] MEDS ORDERED: DIAZEPAM INJ 10 MG/2 ML DISP.SYRIN IV ONE (04:20)
[2018-09-04 05:13] VITALS: BP 145/64
--- NOTE | 2018-09-04 06:12 | EKG REPORT ---
SEVERITY:- ABNORMAL ECG - SINUS RHYTHM ABNORMAL T, CONSIDER ISCHEMIA, ANTERIOR LEADS : Confirmed by: Raffi Benson MD 04-Sep-2018 06:11:55
== END 2018-09-04 05:12 | disposition home or self-care (01) ==
LOC: ER 01:54
DX: M62.830 Muscle spasm of back (principal); M54.5 Low back pain; R11.2 Nausea with vomiting, unspecified; R10.9 Unspecified abdominal pain
CPT/HCPCS: 93005; 99284; 96372; 96361; 96374; 96375; 36415; 83690; 85025; 80053; 84484; 93010; J3360; J0500; S0119; J2405; J7030

== ENCOUNTER 2018-12-18 14:53 | Emergency (ER) | payer BC, OTHER ==
--- NOTE | 2018-12-18 15:08 | ER Document Report ---
ED Medical Screen (RME) - General Stated Complaint: RIGHT LEG PAIN Time Seen by Provider: 12/18/18 15:05 Primary Care Provider: CHRISTIANO MEYERS PA-C [Primary Care Provider] - Follow up as needed Mode of Arrival: Medic Information source: Patient Notes: Patient is a 58-year-old female presenting with bilateral leg pain, worsening over the last several days. Patient reports she has been falling a lot lately. Patient came via EMS and was given 100 mcg of intranasal fentanyl. Patient reports relief of her pain after the medication administration. I have greeted and performed a rapid initial assessment of this patient. A comprehensive ED assessment and evaluation of the patient, analysis of test results and completion of the medical decision making process will be conducted by additional ED providers. Dictation of this chart was performed using voice recognition software; therefore, there may be some unintended grammatical errors. TRAVEL OUTSIDE OF THE [place] IN LAST 30 DAYS: No - Related Data Allergies/Adverse Reactions: No Known Allergies Allergy (Verified 08/12/17 11:42) Past Medical History - Past Medical History Cardiac Medical History: Denies: Hx Coronary Artery Disease, Hx Heart Attack, Hx Hypertension Pulmonary Medical History: Denies: Hx Asthma, Hx Bronchitis, Hx COPD, Hx Pneumonia Neurological Medical History: Denies: Hx Cerebrovascular Accident, Hx Seizures Renal/ Medical History: Denies: Hx Peritoneal Dialysis Musculoskeltal Medical History: Denies Hx Arthritis Past Surgical History: Reports: Hx Hysterectomy - Immunizations Hx Diphtheria, Pertussis, Tetanus Vaccination: Yes Doctor's Discharge - Discharge Referrals: CHRISTIANO MEYERS PA-C [Primary Care Provider] - Follow up as needed
[2018-12-18] MEDS ORDERED: OXYCODONE-ACETAMINOPHEN 5-325 MG TABLET PO ONE (15:59)
--- NOTE | 2018-12-18 16:08 | RADIOLOGY REPORT (SQ) ---
EXAM DESCRIPTION: HIP BILATERAL COMPLETED DATE/TIME: 12/18/2018 3:40 pm REASON FOR STUDY: fall, right hip and leg pain COMPARISON: None. NUMBER OF VIEWS: Two views. TECHNIQUE: AP pelvis and additional frog-leg view of the right and left hip. LIMITATIONS: None. FINDINGS: MINERALIZATION: Normal. Right HIP: No fracture or dislocation. No worrisome bone lesions. Left HIP: No fracture or dislocation. No worrisome bone lesions. PUBIS AND ISCHIUM: No fracture. PELVIS: No fracture. SACRUM: There is sclerosis associated with the inferior aspect of the right sacroiliac joint. LOWER LUMBAR SPINE: S1 appears to represent a transitional vertebra. Partial lumbarization on the ri ght. SOFT TISSUES: No findings. OTHER: No other significant finding. IMPRESSION: Right sacroiliitis. 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 TECHNICAL DOCUMENTATION: JOB ID: [id number] [employer]- All Rights Reserved Reading location - IP/workstation name: [email or web address]
--- NOTE | 2018-12-18 18:08 | ER Document Report ---
ED Extremity Problem, Lower - General Chief Complaint: Leg Pain Stated Complaint: RIGHT LEG PAIN Time Seen by Provider: 12/18/18 18:08 Primary Care Provider: CHRISTIANO MEYERS PA-C [NO LOCAL MD] - Follow up as needed Mode of Arrival: Ambulatory Information source: Patient Notes: HISTORY OF PRESENT ILLNESS: Patient is a 58-year-old female with a past medical history of hypertension and hypothyroidism who presents with cramping and weakness to the bilateral lower extremities beginning 1 month ago but worsening lately. Patient also reports frequent falls that feels like her legs "just giving out on me." Patient denies head injury. Of note, the patient reports that she has not taken her Synthroid in the last 5 months because it gave her palpitations, reports being stable on 150 mcg but began having palpitations at 175 mcg so she has not been taking her medications. Location: Legs Onset: A month ago Provocation: Unknown Quality: Weakness, cramping Radiation: Both legs Severity: Moderate Timing: Intermittent Associated symptoms: No fevers or chills, no cough or congestion, no chest pain or shortness of breath, no confusion or disorientation REVIEW OF SYSTEMS: CONSTITUTIONAL : Denies fever or chills, no sweats. Denies recent illness. EENT: Denies eye, ear, throat, or mouth pain or symptoms. Denies nasal or sinus congestion. CARDIOVASCULAR: Denies chest pain. RESPIRATORY: Denies cough, cold, or chest congestion. Denies shortness of breath, difficulty breathing, or wheezing. GASTROINTESTINAL: Denies abdominal pain. Denies nausea, vomiting, or diarrhea. Denies constipation. GENITOURINARY: Denies difficulty urinating, painful urination, burning, frequency, or blood in urine. Denies vaginal bleeding, abnormal or irregular periods. MUSCULOSKELETAL: Positive for back/leg cramping and weakness. SKIN: Denies rash or skin lesions. HEMATOLOGIC : Denies easy bruising or bleeding. LYMPHATIC: Denies swollen, enlarged glands. NEUROLOGICAL: Denies altered mental status or loss of consciousness. Denies headache. Denies weakness or paralysis or loss of use of either side. Denies problems with gait or speech. Denies sensory or motor loss. PSYCHIATRIC: Denies anxiety or stress or depression. All other systems reviewed and negative. PHYSICAL EXAMINATION: GENERAL: Well-appearing, well-nourished and in no acute distress. HEAD: Atraumatic, normocephalic. No scalp deformity, depression, or crepitance. EYES: Pupils are 3 mm and equal/round/reactive to light, extraocular movements intact, sclera anicteric, conjunctiva are normal. ENT: Nares patent bilaterally, oropharynx clear without exudates or palatal petechia. Moist mucous membranes. No tonsil hypertrophy. NECK: Normal range of motion, supple without lymphadenopathy. LUNGS: Breath sounds present, equal, and clear to auscultation bilaterally. No wheezes, rales, or rhonchi. HEART: Regular rate and rhythm without murmurs, rubs, or gallops. 2+ peripheral pulses. Normal capillary refill. ABDOMEN: Soft, nontender, nondistended. Normoactive bowel sounds. No guarding, no rebound. No masses appreciated. BACK: Normal contour, no midline tenderness. Rectal exam deferred. PELVC: Deferred. EXTREMITIES: Normal range of motion, no pitting or edema. No cyanosis. NEUROLOGICAL: No focal neurological deficits. Mildly increased tone of the bilateral lower extremities, normal 2+ deep tendon reflexes. Moves all extremities spontaneously and on command. PSYCH: Normal mood, normal affect. No suicidal thoughts/ideations. No homocidal thoughts/ideations. No hallucinations. SKIN: Warm, dry, normal turgor, no rashes or lesions noted. ASSESSMENT AND PLAN: This patient is a 58-year-old female who presents with back pain with leg cramping and weakness, also multiple frequent falls described as her legs giving out. Unknown etiology but could represent muscle spasms versus sacroiliitis versus undiagnosed arthritis versus intracranial lesion although this is much less likely. 1. Initial x-ray of the hips demonstrates right sacroiliitis. 2. Will obtain head CT and reassess after oral baclofen. TRAVEL OUTSIDE OF THE [place] IN LAST 30 DAYS: No - Related Data Allergies/Adverse Reactions: No Known Allergies Allergy (Verified 08/12/17 11:42) Past Medical History - General Information source: Patient - Social History Smoking Status: Current Every Day Smoker Chew tobacco use (# tins/day): No - 1/2 ppd Frequency of alcohol use: Social Drug Abuse: None Lives with: Family Family History: Reviewed & Not Pertinent. denies: CAD Patient has suicidal ideation: No Patient has homicidal ideation: No - Past Medical History Cardiac Medical History: Reports: Hx Hypertension Denies: Hx Coronary Artery Disease, Hx Heart Attack Pulmonary Medical History: Denies: Hx Asthma, Hx Bronchitis, Hx COPD, Hx Pneumonia EENT Medical History: Reports: None Neurological Medical History: Reports: None. Denies: Hx Cerebrovascular Accident, Hx Seizures Endocrine Medical History: Reports: Hx Hypothyroidism Renal/ Medical History: Reports: None. Denies: Hx Peritoneal Dialysis Malignancy Medical History: Reports: None GI Medical History: Reports: None Musculoskeletal Medical History: Reports None, Denies Hx Arthritis Skin Medical History: Reports None Psychiatric Medical History: Reports: None Traumatic Medical History: Reports: None Infectious Medical History: Reports: None Past Surgical History: Reports: Hx Hysterectomy - Immunizations Hx Diphtheria, Pertussis, Tetanus Vaccination: Yes Physical Exam - Vital signs Vitals: Temp Pulse Resp BP Pulse Ox 98.1 F 107 H 16 140/84 H 95 12/18/18 15:18 12/18/18 15:18 12/18/18 15:18 12/18/18 15:18 12/18/18 15:18 Course - Re-evaluation Re-evalutation: 12/18/18 21:26 CT is negative. Patient has had mild improvement after baclofen. She will be discharged home with return precautions and follow-up as needed. Patient voices both understanding and agreeing with plan. - Vital Signs Vital signs: Temp Pulse Resp BP Pulse Ox 98.1 F 107 H 16 140/84 H 95 12/18/18 15:18 12/18/18 15:18 12/18/18 15:18 12/18/18 15:18 12/18/18 15:18 - Diagnostic Test Radiology reviewed: Image reviewed, Reports reviewed Discharge - Discharge Clinical Impression: Muscle spasms of both lower extremities Chronic back pain Qualifiers: Back pain location: thoracic back pain Back pain laterality: midline Qualified Code(s): M54.6 - Pain in thoracic spine; G89.29 - Other chronic pain Condition: Good Disposition: HOME, SELF-CARE Instructions: Chronic Back Pain ([facility]) Additional Instructions: You have been evaluated in the Emergency Department for back pain as well as pain in the legs with muscle spasms. While here, you had a normal CAT scan of your head and it is now safe to be discharged home. Please follow-up with your primary physician as well as an medication specialist as instructed in 1 week. Return to the Emergency Department if you experience worsening pain, the inability to walk, or any other concerning symptoms. Prescriptions: Baclofen [Baclofen 10 mg Tablet] 10 mg PO TID PRN #30 tab PRN Reason: Muscle Spasms Diclofenac Sodium 75 mg PO BID #30 tablet.dr Referrals: CHRISTIANO MEYERS PA-C [NO LOCAL MD] - Follow up as needed BRANDI BOCANEGRA MD [ACTIVE STAFF] - Follow up as needed Print Language: Lithuanian
[2018-12-18] MEDS ORDERED: LEVOTHYROXINE SODIUM 0.15 MG TABLET PO ONE (18:34)
[2018-12-18] MEDS ORDERED: BACLOFEN 10 MG TABLET PO ONE (18:34)
--- NOTE | 2018-12-18 19:09 | RADIOLOGY REPORT (SQ) ---
EXAM DESCRIPTION: CT HEAD WITHOUT COMPLETED DATE/TIME: 12/18/2018 6:55 pm REASON FOR STUDY: Fall COMPARISON: 08/12/2017 TECHNIQUE: Axial images acquired through the brain without intravenous contrast. Images reviewed wi th bone, brain and subdural windows. Additional sagittal and coronal reconstructions were generated. Images stored on PACS. All CT scanners at this facility use dose modulation, iterative reconstruction, and/or weight based d osing when appropriate to reduce radiation dose to as low as reasonably achievable (ALARA). [facility]: Dose Right [facility]: CareDose [facility]: Dose Right [facility]: Teradose 4D [facility]: [employer] RADIATION DOSE: CT Rad equipment meets quality standard of care and radiation dose reduction techniq ues were employed. CTDIvol: 53.2 mGy. DLP: 1476 mGy-cm. mGy. LIMITATIONS: Motion artifact. FINDINGS: VENTRICLES: Normal size and contour. CEREBRUM: No masses. No hemorrhage. No midline shift. No evidence for acute infarction. Normal gra y/white matter differentiation. No areas of low density in the white matter. CEREBELLUM: No masses. No hemorrhage. No alteration of density. No evidence for acute infarction. EXTRAAXIAL SPACES: No fluid collections. No masses. ORBITS AND GLOBE: No intra- or extraconal masses. Normal contour of globe without masses. CALVARIUM: No fracture. PARANASAL SINUSES: No fluid or mucosal thickening. SOFT TISSUES: No mass or hematoma. OTHER: No other significant finding. IMPRESSION: NORMAL BRAIN CT WITHOUT CONTRAST. EVIDENCE OF ACUTE STROKE: NO. COMMENT: Quality ID # [id number]: Final reports with documentation of one or more dose reduction techniques (e.g., Automated exposure control, adjustment of the mA and/or kV according to patient size, use of iterative reconstruction technique) TECHNICAL DOCUMENTATION: JOB ID: [id number] [employer]- All Rights Reserved Reading location - IP/workstation name: [email or web address]
[2018-12-18 21:40] VITALS: BP 135/88
== END 2018-12-18 21:39 | disposition home or self-care (01) ==
LOC: ER 14:53
DX: M62.838 Other muscle spasm (principal); M54.6 Pain in thoracic spine; G89.29 Other chronic pain; R29.6 Repeated falls; I10 Essential (primary) hypertension; F17.200 Nicotine dependence, unspecified, uncomplicated
CPT/HCPCS: 70450; 73522; 99284

== ENCOUNTER → 2019-02-09 | Outpatient (CLI) | payer BC ==
[~2019-02-09] MED LIST: DIAZEPAM 5 MG TABLET ONE
--- NOTE | 2019-02-09 13:19 | RADIOLOGY REPORT (SQ) ---
EXAM DESCRIPTION: MRI HEAD COMBO COMPLETED DATE/TIME: 02/09/2019 12:59 pm REASON FOR STUDY: GAIT ABNORMALITY R25.2 CRAMP AND SPASM G95.9 DISEASE OF SPINAL CORD, UNSPECIFIED R26.9 UNSPECIFIED ABNORMALITIES OF GAIT AND MOBILITY COMPARISON: None. TECHNIQUE: Multiplanar imaging includes noncontrasted T1, T2, FLAIR, diffusion with ADC map and post gadolinium contrast T1 sequences. Images stored on PACS. CONTRAST TYPE AND DOSE: 15 mL Dotarem. RENAL FUNCTION: Not indicated. ACR Type II contrast agent associated with few, if any, unconfounded cases of NSF LIMITATIONS: None. FINDINGS: ANATOMY: No anomalies. Normal vascular flow voids. Pituitary fossa normal. CSF SPACES: Normal in size and contour. No hemorrhage. CEREBRUM: Sulci and gyri normal in size and contour. Normal white matter signal on FLAIR imaging. No evidence of hemorrhage, mass, or extraaxial fluid collection. No abnormal enhancement post contrast. POSTERIOR FOSSA: No signal alteration. No hemorrhage. No edema, masses, or mass effect. Internal sowmya tory canals, cerebellopontine angles, mastoids normal. No enhancing lesions. No abnormal enhancement post contrast. DIFFUSION IMAGING: Negative for acute or subacute infarction. ORBITS: No masses. Globes normal. PARANASAL SINUSES: No fluid levels. Mucosa normal. OTHER: No other significant finding. IMPRESSION: NORMAL MRI OF THE BRAIN WITHOUT AND WITH INTRAVENOUS GADOLINIUM CONTRAST. EVIDENCE OF ACUTE STROKE: NO. TECHNICAL DOCUMENTATION: JOB ID: [id number] [employer]- All Rights Reserved Reading location - IP/workstation name: [email or web address]
== END ==
LOC: RAD 11:40
PROVIDERS: ATTEND Psychiatry & Neurology Neurology
DX: R25.2 Cramp and spasm (principal); G95.9 Disease of spinal cord, unspecified; R26.9 Unspecified abnormalities of gait and mobility
CPT/HCPCS: 82565; 70553; A9576

== ENCOUNTER 2019-02-28 15:15 | Emergency (ER) | payer BC ==
--- NOTE | 2019-02-28 17:28 | ER Document Report ---
ED Medical Screen (RME) - General Chief Complaint: Chest Pain Stated Complaint: CHEST PAIN Time Seen by Provider: 02/28/19 17:23 Primary Care Provider: JUANY JONES MD [Primary Care Provider] - Follow up as needed Mode of Arrival: Wheelchair Information source: Patient Notes: Patient is a 58-year-old female with past medical history of hypothyroidism presenting to the emergency department with right-sided chest pain that radiates into her right arm and straight through to the back. Patient also reports bilateral feet swelling that has been ongoing for 1 week. Patient denies any shortness of breath. She does report a history of muscle spasms in her back, she does state that the pain in her chest feels like a tight squeezing muscle spasm. She denies any nausea or diaphoresis. Exam: Patient alert, oriented and answering all questions appropriately. No acute distress is noticed. No pain with palpation to the chest wall. I have greeted and performed a rapid initial assessment of this patient. A comprehensive ED assessment and evaluation of the patient, analysis of test results and completion of the medical decision making process will be conducted by additional ED providers. Dictation of this chart was performed using voice recognition software; therefore, there may be some unintended grammatical errors. TRAVEL OUTSIDE OF THE [place] IN LAST 30 DAYS: No - Related Data Allergies/Adverse Reactions: No Known Allergies Allergy (Verified 08/12/17 11:42) Past Medical History - Social History Frequency of alcohol use: None Drug Abuse: None - Past Medical History Cardiac Medical History: Reports: Hx Hypertension Denies: Hx Coronary Artery Disease, Hx Heart Attack Pulmonary Medical History: Denies: Hx Asthma, Hx Bronchitis, Hx COPD, Hx Pneumonia Neurological Medical History: Denies: Hx Cerebrovascular Accident, Hx Seizures Endocrine Medical History: Reports: Hx Hypothyroidism Renal/ Medical History: Denies: Hx Peritoneal Dialysis Musculoskeltal Medical History: Denies Hx Arthritis Past Surgical History: Reports: Hx Hysterectomy - Immunizations Hx Diphtheria, Pertussis, Tetanus Vaccination: Yes Physical Exam - Vital signs Vitals: Temp Pulse Resp BP Pulse Ox 98.3 F 75 16 110/67 98 02/28/19 15:50 02/28/19 15:50 02/28/19 15:50 02/28/19 15:50 02/28/19 15:50 Course - Vital Signs Vital signs: Temp Pulse Resp BP Pulse Ox 98.3 F 75 16 110/67 98 02/28/19 15:50 02/28/19 15:50 02/28/19 15:50 02/28/19 15:50 02/28/19 15:50 Doctor's Discharge - Discharge Referrals: JUANY JONES MD [Primary Care Provider] - Follow up as needed
[2019-02-28] MEDS ORDERED: OXYCODONE-ACETAMINOPHEN 5-325 MG TABLET PO ONE (17:50)
[2019-02-28 18:10] LABS: ABSOLUTE EOSINOPHILS # (AUTO) 0.1 10^3/uL (0.0-0.6); ABSOLUTE LYMPHOCYTES (AUTO) 1.3 10^3/uL (0.5-4.7); ABSOLUTE MONOCYTES (AUTO) 0.2 10^3/uL (0.1-1.4); ABSOLUTE NEUT (AUTO) 1.7 10^3/uL (1.7-8.2); BASOPHILS % (AUTO) 0.9 % (0-2); EOSINOPHILS % (AUTO) 4.1 % (0-6); HEMATOCRIT 37.4 % (36.0-47.0); HEMOGLOBIN 12.5 g/dL (12.0-15.5); LYMPHOCYTES % (AUTO) 38.6 % (13-45); MEAN CORPUSCULAR HEMOGLOBIN 31.6 pg (27.0-33.4); MEAN CORPUSCULAR HGB CONC 33.5 g/dL (32.0-36.0); MEAN CORPUSCULAR VOLUME 94 fl (80-97); MONOCYTES % (AUTO) 6.8 % (3-13); PLATELET COUNT 286 10^3/uL (150-450); RED BLOOD COUNT 3.97 10^6/uL (3.72-5.28); RED CELL DISTRIBUTION WIDTH 13.5 % (11.5-14.0); SEGMENTED NEUTROPHILS % (AUTO) 49.6 % (42-78); TOTAL CELLS COUNTED % (AUTO) 100 %; WHITE BLOOD COUNT 3.4 10^3/uL (4.0-10.5)
--- NOTE | 2019-02-28 18:11 | RADIOLOGY REPORT (SQ) ---
EXAM DESCRIPTION: CHEST SINGLE VIEW COMPLETED DATE/TIME: 02/28/2019 6:01 pm REASON FOR STUDY: chest pain COMPARISON: 08/12/2017 EXAM PARAMETERS: NUMBER OF VIEWS: One view. TECHNIQUE: Single frontal radiographic view of the chest acquired. RADIATION DOSE: NA LIMITATIONS: None. FINDINGS: LUNGS AND PLEURA: No opacities, masses or pneumothorax. No pleural effusion. MEDIASTINUM AND HILAR STRUCTURES: No masses. Contour normal. HEART AND VASCULAR STRUCTURES: Heart normal in size. Normal vasculature. BONES: No acute findings. HARDWARE: None in the chest. OTHER: No other significant finding. IMPRESSION: NO ACUTE RADIOGRAPHIC FINDING IN THE CHEST. TECHNICAL DOCUMENTATION: JOB ID: [id number] [employer]- All Rights Reserved Reading location - IP/workstation name: [email or web address]
[2019-02-28 18:28] LABS: ALANINE AMINOTRANSFERASE 28 U/L (9-52); ALBUMIN 4.8 g/dL (3.5-5.0); ALKALINE PHOSPHATASE 85 U/L (38-126); ANION GAP 7 (5-19); ASPARTATE AMINO TRANSFERASE 28 U/L (14-36); BILIRUBIN,DIRECT 0.2 mg/dL (0.0-0.4); BILIRUBIN,TOTAL 0.6 mg/dL (0.2-1.3); BLOOD UREA NITROGEN 13 mg/dL (7-20); CALCIUM 10.4 mg/dL (8.4-10.2); CARBON DIOXIDE 28 mmol/L (22-30); CHLORIDE 107 mmol/L (98-107); GLUCOSE 96 mg/dL (75-110); POTASSIUM 4.4 mmol/L (3.6-5.0); SODIUM 142.1 mmol/L (137-145); TOTAL PROTEIN 8.6 g/dL (6.3-8.2)
--- NOTE | 2019-02-28 20:48 | EKG REPORT ---
SEVERITY:- ABNORMAL ECG - SINUS RHYTHM NONSPECIFIC T ABNORMALITIES, ANTERIOR LEADS : Confirmed by: Anju Hardy MD 28-Feb-2019 20:47:27
[2019-02-28] MEDS ORDERED: KETOROLAC TROMETHAMINE INJ/PF 30 MG/1 ML SDV IV ONE (23:51)
[2019-02-28] MEDS ORDERED: GABAPENTIN 100 MG CAPSULE PO ONE (23:52)
--- NOTE | 2019-02-28 23:52 | ER Document Report ---
ED General - General Chief Complaint: Chest Pain Stated Complaint: CHEST PAIN Time Seen by Provider: 02/28/19 17:23 Primary Care Provider: JUANY JONES MD [NO LOCAL MD] - Follow up as needed Mode of Arrival: Wheelchair Notes: This is a 4-year-old female to the emergency department for evaluation of intermittent chest pain, arm pain, leg pain, back pain, swelling of her legs and generally not feeling well for quite some time. Is undergoing a work-up for potential multiple sclerosis. Had an MRI which was reportedly negative but does not have the MRI results on her back. Denies any significant chest pain at this time. Patient is a smoker. TRAVEL OUTSIDE OF THE [place] IN LAST 30 DAYS: No - HPI Onset/Duration: Gradual, Constant Quality of pain: Cramping Severity: Mild Pain Level: 1 - Related Data Allergies/Adverse Reactions: No Known Allergies Allergy (Verified 08/12/17 11:42) Past Medical History - General Information source: Patient - Social History Smoking Status: Current Every Day Smoker Frequency of alcohol use: None Drug Abuse: None Lives with: Family Family History: Reviewed & Not Pertinent. denies: CAD Patient has suicidal ideation: No Patient has homicidal ideation: No - Past Medical History Cardiac Medical History: Reports: Hx Hypertension Denies: Hx Coronary Artery Disease, Hx Heart Attack Pulmonary Medical History: Denies: Hx Asthma, Hx Bronchitis, Hx COPD, Hx Pneumonia Neurological Medical History: Denies: Hx Cerebrovascular Accident, Hx Seizures Endocrine Medical History: Reports: Hx Hypothyroidism Renal/ Medical History: Denies: Hx Peritoneal Dialysis Musculoskeletal Medical History: Denies Hx Arthritis Past Surgical History: Reports: Hx Hysterectomy - Immunizations Hx Diphtheria, Pertussis, Tetanus Vaccination: Yes Review of Systems - Review of Systems Notes: Constitutional: denies: Chills, Diaphoresis, Fever, Malaise, Weakness EENT: denies: Eye discharge, Blurred vision, Tearing, Double vision, Nose congestion, Nose discharge, Throat swelling, Mouth pain Cardiovascular: denies: Palpitations, Heart racing, Orthopnea, Dyspnea, Chest pain Respiratory: denies: Cough, Hurts to breathe, Wheezing, Shortness of breath Gastrointestinal: denies: Abdominal pain, Diarrhea, Nausea, Vomiting, Black s tools, bright red blood in stool Genitourinary: denies: Burning, Dysuria, Discharge, Frequency, Flank pain, Hematuria Musculoskeletal: +Joint pain, +Joint swelling, +Muscle pain, +Muscle stiffness, +back pain. Complaining of her extremity edema Hematologic/Lymphatic: denies: Anemia, Easy bleeding, Easy bruising, Blood clots Neurological/Psychological: denies: Confusion, Dementia, Depression, Loss of consciousness Skin: No lesions, no masses, no skin breakdown, no abscesses Physical Exam - Vital signs Vitals: Temp Pulse Resp BP Pulse Ox 98.3 F 75 16 110/67 98 02/28/19 15:50 02/28/19 15:50 02/28/19 15:50 02/28/19 15:50 02/28/19 15:50 Interpretation: Normal - General General appearance: Appears well, Alert - HEENT Head: Normocephalic, Atraumatic Eyes: Normal Pupils: PERRL - Respiratory Respiratory status: No respiratory distress Chest status: Nontender Breath sounds: Normal Chest palpation: Normal - Cardiovascular Rhythm: Regular Heart sounds: Normal auscultation Murmur: No - Abdominal Inspection: Normal Distension: No distension Bowel sounds: Normal Tenderness: Nontender Organomegaly: No organomegaly - Back Back: Normal, Nontender - Extremities General upper extremity: Normal inspection, Nontender, Normal color, Normal ROM, Normal temperature General lower extremity: Normal inspection, Nontender, Edema - She has moderate amount of bilateral feet edema. Denies any pain to palpation of the calf area. There is no asymmetrical swelling., Normal color, Normal ROM, Normal temperatu re, Normal weight bearing. No: Isabella's sign - Neurological Neuro grossly intact: Yes Cognition: Normal Orientation: AAOx4 Stephan Coma Scale Eye Opening: Spontaneous Stephan Coma Scale Verbal: Oriented Moh[place] Coma Scale Motor: Obeys Commands [place] Coma Scale Total: 15 Speech: Normal Motor strength normal: LUE, RUE, LLE, RLE Sensory: Normal - Psychological Associated symptoms: Normal affect, Normal mood - Skin Skin Temperature: Warm Skin Moisture: Dry Skin Color: Normal Course - Re-evaluation Re-evalutation: 03/01/19 01:07 Laboratory 02/28/19 02/28/19 02/28/19 17:47 17:47 17:47 WBC 3.4 L RBC 3.97 Hgb 12.5 Hct 37.4 MCV 94 MCH 31.6 MCHC 33.5 RDW 13.5 Plt Count 286 Seg Neutrophils % 49.6 Lymphocytes % 38.6 Monocytes % 6.8 Eosinophils % 4.1 Basophils % 0.9 Absolute Neutrophils 1.7 Absolute Lymphocytes 1.3 Absolute Monocytes 0.2 Absolute Eosinophils 0.1 Absolute Basophils 0.0 Sodium 142.1 Potassium 4.4 Chloride 107 Carbon Dioxide 28 Anion Gap 7 BUN 13 Creatinine 0.73 Est GFR ( Amer) > 60 Est GFR (Non-Af Amer) > 60 Glucose 96 Calcium 10.4 H Total Bilirubin 0.6 Direct Bilirubin 0.2 Neonat Total Bilirubin Not Reportable Neonat Direct Bilirubin Not Reportable Neonat Indirect Bili Not Reportable AST 28 ALT 28 Alkaline Phosphatase 85 Troponin I < 0.012 NT-Pro-B Natriuret Pep Total Protein 8.6 H Albumin 4.8 02/28/19 02/28/19 23:27 23:27 WBC RBC Hgb Hct MCV MCH MCHC RDW Plt Count Seg Neutrophils % Lymphocytes % Monocytes % Eosinophils % Basophils % Absolute Neutrophils Absolute Lymphocytes Absolute Monocytes Absolute Eosinophils Absolute Basophils Sodium Potassium Chloride Carbon Dioxide Anion Gap BUN Creatinine Est GFR ( Amer) Est GFR (Non-Af Amer) Glucose Calcium Total Bilirubin Direct Bilirubin Neonat Total Bilirubin Neonat Direct Bilirubin Neonat Indirect Bili AST ALT Alkaline Phosphatase Troponin I < 0.012 NT-Pro-B Natriuret Pep 19 Total Protein Albumin Chest X-Ray 02/28/19 17:26 IMPRESSION: NO ACUTE RADIOGRAPHIC FINDING IN THE CHEST. 03/01/19 01:09 Patient's vital signs are within normal limits. Her pain is much better very comfortable stating that she is not having a heart attack at this time. She has some peripheral edema but her BNP is 19. Unlikely heart failure. Patient does not ambulate much due to her chronic pain. She has dependent position on her legs so she has a lot of dependent edema. At this time she is undergoing a work-up as an outpatient for possible MS. She has some migratory pain. She feels much better after her shot of Toradol and some gabapentin. At this time I am going to discharge in stable condition with outpatient work-up. - Vital Signs Vital signs: Temp Pulse Resp BP Pulse Ox 98.5 F 75 20 108/93 H 97 03/01/19 01:20 02/28/19 15:50 03/01/19 01:01 03/01/19 01:01 03/01/19 01:01 - Laboratory Result Diagrams: 02/28/19 17:47 02/28/19 17:47 Laboratory results interpreted by me: 02/28/19 02/28/19 17:47 17:47 WBC 3.4 L Calcium 10.4 H Total Protein 8.6 H - EKG Interpretation by Me EKG shows normal: Sinus rhythm, [place], Intervals, QRS Complexes, ST-T Waves When compared to previous EKG there are: No significant change Discharge - Discharge Clinical Impression: Dependent edema Chronic pain Qualifiers: Chronic pain type: other chronic pain Qualified Code(s): G89.29 - Other chronic pain Condition: Good Disposition: HOME, SELF-CARE Instructions: Edema, Peripheral ([facility]) Additional Instructions: Continue with your regular medications. Follow-up with your primary care doctor. In the event the symptoms are getting worse please return for repeat evaluation. When at all possible elevate your legs especially if you are just sitting. Try to elevate your legs to position that is at the level of your heart if possible. This can help with some of the edema. If possible ambulate/walk around as this can help mobilize fluid. Please make an appointment with your primary care doctor for follow-up evaluation. Prescriptions: Gabapentin [Neurontin 100 mg Capsule] 100 mg PO TID 10 Days #30 capsule Referrals: JUANY JONES MD [NO LOCAL MD] - Follow up as needed
[2019-03-01 01:22] VITALS: BP 108/93
== END 2019-03-01 01:22 | disposition home or self-care (01) ==
LOC: ER 15:15
DX: R60.0 Localized edema (principal); G89.29 Other chronic pain; R07.9 Chest pain, unspecified; M79.603 Pain in arm, unspecified; M79.606 Pain in leg, unspecified; M79.89 Other specified soft tissue disorders; F17.200 Nicotine dependence, unspecified, uncomplicated; I10 Essential (primary) hypertension
CPT/HCPCS: 93005; 99284; 96374; 36415; 85025; 80053; 84484; 83880; 71045; 93010; J1885

== ENCOUNTER → 2019-03-13 | Outpatient (CLI) | payer BC ==
--- NOTE | 2019-03-13 16:00 | RADIOLOGY REPORT (SQ) ---
EXAM DESCRIPTION: MRI LUMBAR SPINE COMBO COMPLETED DATE/TIME: 03/13/2019 2:33 pm REASON FOR STUDY: M54.41 LUMBAGO WITH SCIATICA, RIGHT SIDE M54.41 LUMBAGO WITH SCIATICA, RIGHT SIDE COMPARISON: Lumbar spine films 09/21/2017, 06/28/2017 TECHNIQUE: Sagittal and Axial imaging includes T1, T1 post gadolinium, T2, STIR and gradient echo se quences. Coronal T2/HASTE imaging. CONTRAST TYPE AND DOSE: 10 mL Dotarem. RENAL FUNCTION: Not indicated. ACR Type II contrast agent associated with few, if any, unconfounded cases of NSF LIMITATIONS: None. FINDINGS: VISUALIZED UPPER ABDOMEN: Limited evaluation. No acute or suspicious findings suggested. SEGMENTATION: No transitional anatomy. The lowest well-developed disc space is labeled L5-S1. ALIGNMENT: Convex rightward lumbar curvature VERTEBRAE: Intact. No fractures. BONE MARROW: Normal. No marrow replacement or reactive changes. DISC SIGNAL: Diffuse decreased T2 weighted intervertebral disc signal. POSTERIOR ELEMENTS: Generally intact. No pars defect evident. HARDWARE: None in the spine. CORD AND CONUS: Normal in size and signal intensity. Conus at the L1 level. SOFT TISSUES: No aortic aneurysm seen. No bulky retroperitoneal adenopathy or mass. No paraspinal mas s or fluid. T10-11: Minimal posterior disc bulging, mild bilateral facet and ligament hypertrophy. No central s tenosis. Mild bilateral foraminal narrowing. T11-12: Mild bilateral facet arthropathy. Mild bilateral foraminal narrowing. No central stenosis. T12-L1: Minimal posterior disc bulging, moderate bilateral facet hypertrophy. No central stenosis. Mild bilateral foraminal narrowing. L1-L2: Broad diffuse posterior disc bulge and bulky bilateral facet and ligament hypertrophy are pres ent, causing mild central canal stenosis. This is best shown on axial T2 image 5. Mild bilateral fo raminal narrowing is present without exiting L1 nerve root impingement. L2-L3: Broad diffuse posterior disc bulge and bony spurring, bulky bilateral facet hypertrophy causes mild central canal narrowing best shown on axial T2 image 11. Mild bilateral foraminal narrowing is present without exiting L2 nerve root impingement L3-L4: Broad diffuse posterior disc bulge and bony spurring, bulky bilateral facet hypertrophy is pre sent with mild to moderate central canal stenosis best shown on axial T2 image 18. There is mild rig ht and [id number] left foraminal narrowing without exit L3 nerve root impingement. L4-L5: Mild diffuse posterior disc bulge and bony spurring, bulky bilateral facet hypertrophy causes mild central canal narrowing left greater than right, best shown on axial T2 image 23. There is mild right and moderate left foraminal narrowing without exit L4 nerve root impingement. L5-S1: Mild bilateral facet hypertrophy is present without central or foraminal encroachment. SACRUM: Visualized upper sacrum intact. ENHANCEMENT: No abnormal conus or nerve root enhancement. No facet joint enhancement. OTHER: No other significant findings. IMPRESSION: Multilevel central canal stenosis TECHNICAL DOCUMENTATION: JOB ID: [id number] [employer]- All Rights Reserved Reading location - IP/workstation name: [email or web address]
== END ==
LOC: RAD 13:11
PROVIDERS: ATTEND Obstetrics & Gynecology
DX: M54.41 Lumbago with sciatica, right side (principal); M54.42 Lumbago with sciatica, left side; Z91.81 History of falling
CPT/HCPCS: 72158; A9576

== ENCOUNTER → 2019-06-02 | Outpatient (CLI) | payer BC ==
--- NOTE | 2019-06-02 13:09 | RADIOLOGY REPORT (SQ) ---
EXAM DESCRIPTION: MRI THORACIC SPINE COMBO COMPLETED DATE/TIME: 06/02/2019 12:19 pm REASON FOR STUDY: (G95.9)DISEASE OF SPINAL CORD, UNSPECIFIED; (R25.2)CRAMP AND SPASM R25.2 CRAMP AN D SPASM G95.9 DISEASE OF SPINAL CORD, UNSPECIFIED COMPARISON: MRI lumbar spine 03/13/2019 TECHNIQUE: Sagittal and Axial imaging includes T1, T2, STIR and gradient echo sequences. T1 post ga dolinium sequences. CONTRAST TYPE AND DOSE: 10 mL Dotarem. RENAL FUNCTION: Not indicated. ACR Type II contrast agent associated with few, if any, unconfounded cases of NSF LIMITATIONS: None. FINDINGS: LOCALIZER: No worrisome findings. ALIGNMENT: Mild convex rightward thoracic curvature VERTEBRAE: Intact. BONE MARROW: Normal. No marrow replacement or reactive changes. HARDWARE: None in the spine. CORD: Normal in size and signal intensity. No masses. No contrast enhancement. SOFT TISSUES: No soft tissue masses. THORACIC DISCS T1-T12: There is very mild multilevel posterior disc bulging without significant centr al canal narrowing. Mild left T7-8, T8-9, T9-10 foraminal narrowing from asymmetric facet hypertroph y. ENHANCEMENT: No abnormal thoracic cord, conus, vertebral body, or intervertebral disc enhancement. OTHER: Diffusely enlarged heterogeneous thyroid likely a multinodular goiter. IMPRESSION: Mild degenerative changes without significant central or foraminal stenosis TECHNICAL DOCUMENTATION: JOB ID: [id number] [employer]- All Rights Reserved Reading location - IP/workstation name: [email or web address]
== END ==
LOC: RAD 10:44
PROVIDERS: ATTEND Psychiatry & Neurology Neurology
DX: G95.9 Disease of spinal cord, unspecified (principal); R25.2 Cramp and spasm
CPT/HCPCS: 82565; 72157; A9576

== ENCOUNTER 2019-06-14 15:27 | Emergency (ER) | payer BC ==
[2019-06-14 16:11] LABS: ABSOLUTE LYMPHOCYTES (AUTO) 0.5 10^3/uL (0.5-4.7); ABSOLUTE MONOCYTES (AUTO) 0.3 10^3/uL (0.1-1.4); ABSOLUTE NEUT (AUTO) 3.6 10^3/uL (1.7-8.2); BASOPHILS % (AUTO) 0.6 % (0-2); EOSINOPHILS % (AUTO) 0.7 % (0-6); HEMATOCRIT 33.8 % (36.0-47.0); HEMOGLOBIN 11.4 g/dL (12.0-15.5); LYMPHOCYTES % (AUTO) 10.8 % (13-45); MEAN CORPUSCULAR HEMOGLOBIN 31.4 pg (27.0-33.4); MEAN CORPUSCULAR HGB CONC 33.7 g/dL (32.0-36.0); MEAN CORPUSCULAR VOLUME 93 fl (80-97); MONOCYTES % (AUTO) 7.4 % (3-13); PLATELET COUNT 201 10^3/uL (150-450); RED BLOOD COUNT 3.63 10^6/uL (3.72-5.28); RED CELL DISTRIBUTION WIDTH 14.3 % (11.5-14.0); SEGMENTED NEUTROPHILS % (AUTO) 80.5 % (42-78); TOTAL CELLS COUNTED % (AUTO) 100 %; WHITE BLOOD COUNT 4.4 10^3/uL (4.0-10.5)
[2019-06-14 16:30] LABS: ALBUMIN 4.4 g/dL (3.5-5.0); ALKALINE PHOSPHATASE 91 U/L (38-126); ANION GAP 11 (5-19); ASPARTATE AMINO TRANSFERASE 22 U/L (14-36); BILIRUBIN,DIRECT 0.1 mg/dL (0.0-0.4); BILIRUBIN,TOTAL 0.6 mg/dL (0.2-1.3); BLOOD UREA NITROGEN 11 mg/dL (7-20); CALCIUM 9.8 mg/dL (8.4-10.2); CARBON DIOXIDE 25 mmol/L (22-30); CHLORIDE 106 mmol/L (98-107); CREATINE KINASE 77 U/L (30-135); GLUCOSE 114 mg/dL (75-110); POTASSIUM 3.7 mmol/L (3.6-5.0); TOTAL PROTEIN 8.1 g/dL (6.3-8.2)
[2019-06-14 16:42] LABS: CREATINE KINASE MB 0.45 ng/mL (<4.55); TROPONIN I < 0.012 ng/mL
[2019-06-14] MEDS ORDERED: IPRATROPIUM/ALBUTEROL 0.5-2.5 MG/3 ML AMPUL NEB ONE ×2 (16:53→19:33)
[2019-06-14] MEDS ORDERED: METHYLPREDNISOLONE INJ 125 MG/2 ML SDV IV ONE (16:54)
--- NOTE | 2019-06-14 16:56 | ER Document Report ---
ED General - General Chief Complaint: General Weakness Stated Complaint: WEAKNESS Time Seen by Provider: 06/14/19 16:38 Primary Care Provider: ABHI DOMINGUEZ MD [Primary Care Provider] - Follow up as needed Mode of Arrival: Medic Information source: Patient, Relative TRAVEL OUTSIDE OF THE [place] 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 Patient was picked up by EMS and had a temperature of 99.8 and was given lactated Ringer's 500 cc. The patient arrived with wheezing and mild dyspnea. The patient reports she is following up pertaining to her chronic back pain and her spinal stenosis. Patient denies any chest pain. She reports no nausea or vomiting or abdominal pain. No focal numbness or paresthesia. - Related Data Allergies/Adverse Reactions: No Known Allergies Allergy (Verified 08/12/17 11:42) Past Medical History - General Information source: Patient - Social History Smoking Status: Current Every Day Smoker Frequency of alcohol use: None Drug Abuse: None Lives with: Family Family History: Reviewed & Not Pertinent Patient has suicidal ideation: No Patient has homicidal ideation: No - Past Medical History Cardiac Medical History: Reports: Hx Hypertension Denies: Hx Coronary Artery Disease, Hx Heart Attack Pulmonary Medical History: Denies: Hx Asthma, Hx Bronchitis, Hx COPD, Hx Pneumonia Neurological Medical History: Denies: Hx Cerebrovascular Accident, Hx Seizures Endocrine Medical History: Reports: Hx Hypothyroidism Renal/ Medical History: Denies: Hx Peritoneal Dialysis Musculoskeletal Medical History: Denies Hx Arthritis Past Surgical History: Reports: Hx Hysterectomy - Immunizations Hx Diphtheria, Pertussis, Tetanus Vaccination: Yes Review of Systems - Review of Systems -: Yes All other systems reviewed and negative Physical Exam - Vital signs Vitals: Resp Pulse Ox 48 H 92 06/14/19 15:54 06/14/19 15:54 - Notes Notes: PHYSICAL EXAMINATION: GENERAL: Well-appearing, well-nourished and in no acute distress. HEAD: Atraumatic, normocephalic. EYES: Pupils equal round and reactive to light, extraocular movements intact, conjunctiva are normal. ENT: Nares patent, oropharynx clear without exudates. Moist mucous membranes. NECK: Normal range of motion, supple without lymphadenopathy LUNGS: Breath sound with wheezing to bilaterally and equal. Mild rhonchi. HEART: Regular rate and rhythm without murmurs ABDOMEN: Soft, nontender, nondistended abdomen. No guarding, no rebound. No masses appreciated. Female : deferred Musculoskeletal: Normal range of motion, trace BLE edema. No cyanosis. Negative Homans. No palpable cord. Chronic mid to lower back pain which is unchanged. NEUROLOGICAL: Cranial nerves grossly intact. Normal speech. Normal sensory, motor exams. No incontinence or saddle anesthesia. PSYCH: Normal mood, normal affect. SKIN: Warm, Dry, normal turgor, no rashes or lesions noted. Course - Re-evaluation Re-evalutation: 06/15/19 01:37 Patient was given IV Solu-Medrol and was given DuoNeb with repeat DuoNeb with improvement in her wheezing. The patient was given Zithromax by mouth and Mucinex. She was found to have a good O2 sats on repeat exam and felt stable for discharge. The patient will be written for a nebulizer machine as well as albuterol metered-dose inhaler for follow-up. There is no obvious evidence for pneumonia or pulmonary embolus or congestive heart failure or acute WI or ischemia. - Vital Signs Vital signs: Temp Pulse Resp BP Pulse Ox 99.1 F 103 H 15 128/81 H 99 06/14/19 16:31 06/14/19 16:31 06/15/19 01:01 06/15/19 01:01 06/15/19 01:01 - Laboratory Result Diagrams: 06/14/19 15:56 06/14/19 15:56 Laboratory results interpreted by me: 06/14/19 06/14/19 06/14/19 15:56 15:56 23:20 RBC 3.63 L Hgb 11.4 L Hct 33.8 L RDW 14.3 H Lymph % (Auto) 10.8 L Seg Neutrophils % 80.5 H Glucose 114 H Urine Protein 100 H Urine Ketones 20 H - EKG Interpretation by [facility] EKG shows normal: Sinus rhythm Additional EKG results interpreted by me: 06/14/19 16:55 EKG is interpreted by fl showed normal sinus rhythm heart rate of 97. There is no gross evidence for acute WI or ischemia noted. There were nonspecific T wave inversions noted anteriorly. Discharge - Discharge Clinical Impression: COPD with acute exacerbation, Bronchitis Condition: Stable Disposition: HOME, SELF-CARE Instructions: Stop Smoking ([facility]), Chronic Obstructive Lung Disease ([facility]), Bronchitis With Bronchospasm (Wheezing) ([facility]) Additional Instructions: Stop smoking. Drink plenty of fluids. Use inhaler 2 puffs every 4 hours as needed for wheezing. Use DuoNeb nebulizer as needed for additional wheezing. Prescriptions: Guaifenesin [Mucinex] 600 mg PO Q12HP PRN #20 tablet.sa PRN Reason: Prednisone [Deltasone 10 mg Tablet] 10 mg PO ASDIR PRN #21 tablet PRN Reason: Ipratropium/Albuterol Sulfate [Duoneb 3 ml Ampul] 3 ml NEB RTQ6HP PRN #60 vial.neb PRN Reason: Azithromycin [Zithromax 250 mg Tablet] 250 mg PO DAILY #4 tablet Referrals: ABHI DOMINGUEZ MD [Primary Care Provider] - Follow up in 3-5 days
[2019-06-14] MEDS ORDERED: OXYCODONE-ACETAMINOPHEN 5-325 MG TABLET PO ONE (18:34)
--- NOTE | 2019-06-14 18:54 | RADIOLOGY REPORT (SQ) ---
EXAM DESCRIPTION: CHEST SINGLE VIEW COMPLETED DATE/TIME: 06/14/2019 5:28 pm REASON FOR STUDY: cough, dyspnea COMPARISON: 02/28/2019 EXAM PARAMETERS: NUMBER OF VIEWS: One view. TECHNIQUE: Single frontal radiographic view of the chest acquired. RADIATION DOSE: NA LIMITATIONS: None. FINDINGS: LUNGS AND PLEURA: Pulmonary vascular congestion. No moshe pulmonary edema. MEDIASTINUM AND HILAR STRUCTURES: No masses. Contour normal. HEART AND VASCULAR STRUCTURES: Cardiomegaly. BONES: No acute findings. HARDWARE: None in the chest. OTHER: No other significant finding. IMPRESSION: Cardiomegaly without pulmonary edema. TECHNICAL DOCUMENTATION: JOB ID: [id number] [employer]- All Rights Reserved Reading location - IP/workstation name: [email or web address]
--- NOTE | 2019-06-14 22:35 | RADIOLOGY REPORT (SQ) ---
EXAM DESCRIPTION: CT CHEST ANGIOGRAPHY WITHOUT THEN WITH IV CONTRAST COMPLETED DATE/TME: 06/14/2019 19:35 CLINICAL HISTORY: 59 years, Female, dyspnea COMPARISON: None. TECHNIQUE: 590 Images stored on PACS. All CT scanners at this facility use dose modulation, iterative reconstruction, and/or weight based dosing when appropriate to reduce radiation dose to as low as reasonably achievable (ALARA). Axial CTA images with coronal and sagittal MIPS [facility]: Dose Right [facility]: CareDose [facility]: Dose Right [facility]: Teradose 4D [facility]: [employer] LIMITATIONS: None. FINDINGS: The exam is nearly nondiagnostic. Suboptimal contrast bolus. Note is made of enlarged heterogeneous nodular appearance to the thyroid. Consider follow-up with ultrasound on a nonemergent basis. No large or central pulmonary embolus. Remainder of the exam is nondiagnostic. Negative for thoracic aortic aneurysm or dissection. The heart and pericardium are unremarkable. Limited evaluation of the upper abdomen shows subcentimeter hypodensities in the liver likely reflecting tiny cysts. No pneumothorax. The visualized airways are patent. Minor bibasilar pleural thickening IMPRESSION: Nearly nondiagnostic exam. No large or central pulmonary embolus. Minor bibasilar pleural thickening. Abnormal appearance to the thyroid. Consider follow-up with nonemergent ultrasound TECHNICAL DOCUMENTATION: Quality ID # [id number]: Final reports with documentation of one or more dose reduction techniques (e.g., Automated exposure control, adjustment of the mA and/or kV according to patient size, use of iterative reconstruction technique) copyright 2011 [employer]- All Rights Reserved
[2019-06-14 23:47] LABS: APPEARANCE,URINE SLIGHTLY-CLOUDY; BILIRUBIN,URINE NEGATIVE (NEGATIVE); COLOR,URINE YELLOW; GLUCOSE, URINE NEGATIVE (NEGATIVE); KETONES,URINE 20 mg/dL (NEGATIVE); LEUKOCYTE ESTERASE,URINE NEGATIVE (NEGATIVE); NITRITE,URINE NEGATIVE (NEGATIVE); PROTEIN,URINE 100 mg/dL (NEGATIVE); URINE SPECIFIC GRAVITY 1.038; UROBILINOGEN,URINE NEGATIVE mg/dL (<2.0)
[2019-06-15 00:11] LABS: A TYPE INFLUENZA AG NEGATIVE (NEGATIVE); B INFLUENZA AG NEGATIVE (NEGATIVE)
[2019-06-15] MEDS ORDERED: IPRATROPIUM/ALBUTEROL 0.5-2.5 MG/3 ML AMPUL NEB ONE (00:44)
[2019-06-15] MEDS ORDERED: AZITHROMYCIN 250 MG TABLET PO ONE (00:45)
[2019-06-15] MEDS ORDERED: GUAIFENESIN 600 MG TABLET.SA PO ONE (00:45)
[2019-06-15] MEDS ORDERED: ALBUTEROL SULFATE HFA (90 MCG/PUFF) 8 GM MDI (1 MDI/ER DISP) IH PRN (01:12)
[2019-06-15 02:03] VITALS: BP 136/82
[2019-06-15] MEDS ORDERED: DIAZEPAM 5 MG TABLET PO ONE (02:11)
--- NOTE | 2019-06-15 13:41 | EKG REPORT ---
SEVERITY:- BORDERLINE ECG - SINUS RHYTHM BORDERLINE T ABNORMALITIES, ANTERIOR LEADS BORDERLINE PROLONGED QT INTERVAL : Confirmed by: Anju Hardy MD 15-Jun-2019 13:39:29
== END 2019-06-15 02:21 | disposition home or self-care (01) ==
LOC: ER 15:27
DX: J44.1 Chronic obstructive pulmonary disease with (acute) exacerbation (principal); R53.1 Weakness; F17.200 Nicotine dependence, unspecified, uncomplicated; I10 Essential (primary) hypertension; Z90.710 Acquired absence of both cervix and uterus
CPT/HCPCS: 93005; 36415; 82553; 82550; 83735; 85025; 80053; 81001; 84484; 87804; 83880; 71045; 71275; 93010; J2930; J3490; J7620 ×2

== ENCOUNTER 2019-08-05 12:39 | Emergency (ER) | payer BC ==
--- NOTE | 2019-08-05 13:20 | ER Document Report ---
ED General - General Chief Complaint: Leg Pain Stated Complaint: LEG PAIN Time Seen by Provider: 08/05/19 13:18 Primary Care Provider: ABHI DOMINGUEZ MD [Primary Care Provider] - Follow up as needed Mode of Arrival: Stretcher Information source: Patient TRAVEL OUTSIDE OF THE [place] IN LAST 30 DAYS: No - HPI Notes: 59 BF bibems b/c couldn't fully carry her down +5 stairs on exterior of [facility] home. she has long hx of chronic pain BLE, LBP but says it's to point it's worse. pt says she's seen pain mgmt in past and has been trying to undergo PT but it's so hard w/ all pain. says in last few days, he can' t even move her legs much to assist her from her chair motorized to commode, b/c her legs and lower body seem "stiff like he can't unbend them. no recent falls. she's been staying mostly in her chair for weeks now since it's painful on lower back to lie in bed. deny f/c/s, no skin breakdown/changes. she takes her baclofen as prescribed but "avoids taking the prescribed oxycodone says only using it once a day sometimes not every day. last dose they say was this am. she initially says not also taking bowel regimen since not rx'd but recalls Rx she hasn't been takign since "hasn't had problem w/ that. denies constipation. denies any urinary/fecal leakage/incontinence. so spasm tremor at all, but says she agrees w/ overall lower ext more and more rigid over months. no swelling she's noticied. tries to reposition her legs often to avoid any swelling. she doens't work anymore for some time now 2/2 chronic pain. was getting injections spinal in past stopped helping. 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 still works full da ytime job. pt's mom is older but comes often in week now to help daughter out around house and periodically to move her help w/ bathroom functions. 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 Lives with: Spouse/Significant other Family History: Reviewed & Not Pertinent Patient has suicidal ideation: No Patient has homicidal ideation: No - Past Medical History Cardiac Medical History: Reports: Hx Hypertension Denies: Hx Coronary Artery Disease, Hx Heart Attack Pulmonary Medical History: Denies: Hx Asthma, Hx Bronchitis, Hx COPD, Hx Pneumonia Neurological Medical History: Denies: Hx Cerebrovascular Accident, Hx Seizures Endocrine Medical History: Reports: Hx Hypothyroidism Renal/ Medical History: Denies: Hx Peritoneal Dialysis Musculoskeletal Medical History: Denies Hx Arthritis Past Surgical History: Reports: Hx Hysterectomy - Immunizations Hx Diphtheria, Pertussis, Tetanus Vaccination: Yes Review of Systems - Review of Systems Constitutional: Weakness - general no akle drop or focal weakness rerported. denies: Chills, Diaphoresis, Fever, Malaise, Weight gain, Weight loss EENT: denies: Eye pain, Blurred vision, Double vision, Ear pain, Ear discharge, Nose pain, Nose congestion, Nose discharge, Sinus pressure, Sinus discharge, Throat pain, Difficulty swallowing, Throat swelling, Mouth pain, Mouth swelling, Dental problem Cardiovascular: denies: Chest pain, Palpitations, Heart racing, Orthopnea, Dyspnea, Syncope, Dizziness, Lightheaded, Edema, Paroxysmal Nocturnal Dysp Respiratory: denies: No symptoms reported Gastrointestinal: See HPI, Poor appetite, Poor fluid intake. denies: Abdomen distended, Abdominal pain, Diarrhea, Nausea, Vomiting, Constipation, Blood streaked bowels, Black stools, Rectal bleeding, Fecal incontinence Genitourinary: No symptoms reported Female Genitourinary: No symptoms reported Musculoskeletal: See HPI, Back pain - chronic years but more intense lumbar diffusely, Muscle pain, Muscle stiffness, Neck pain - chronic years. denies: Joint swelling, Leg swelling, Ankle swelling Hematologic/Lymphatic: No symptoms reported Neurological/Psychological: No symptoms reported, Weakness, Loss of power. denies: Confusion, Depression, Anxiety, Hallucinations, Sensory change, Paralysis, Seizure, Lost consciousness, Headaches, Speech impairment, Numbness, Tingling, Tremor Physical Exam - Vital signs Vitals: Resp Pulse Ox 24 H 97 08/05/19 12:48 08/05/19 12:48 - Neurological Cognition: Normal Orientation: AAOx4 Stephan Coma Scale Eye Opening: Spontaneous Stephan Coma Scale Verbal: Oriented Stephan Coma Scale Motor: Obeys Commands Stephan Coma Scale Total: 15 Speech: Normal Cranial nerves: Normal Cerebellar coordination: Rapid alt. movements - bue intact symmetric. didn't ambulate and couldn't perform heel/gonzales 2/2 reported pain Motor strength normal: YISSEL MEMBRENO - upper extremity strength exam participates fully very strong, also muscle bulk and definition for both upper and lower extremities is very good. 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 says see so rigid, i say well she's resisting me see her other muscles. i ask to not use upper body finally allows me to move in rom. no foot drop w/ hip flexion. no difficulty PROM knee ankles. no joint swelling or point bony deformities. reflexes hard to elicit given pt tensing of those muscles actively., RLE - but overall observing pt actively move some outside of when i specifically examine does initiate and move more at hips. and is not rigid until i try to examine. Additional motor exam normals: Equal gardener. No: Pronator drift, Weakness Babinski reflex: Normal (flexor plantar) - normal exam showing dorsiflexion =negative babinski Sensory: Normal, Pin-prick - Psychological Associated symptoms: Agitated, Flat affect, Irritable, Restlessness, Uncooperative - becomes more cooperative after much counseling and explanation of my findings.. No: Anxious, Auditory hallucinations, Circumferential speech, Combative, Confused, Flight of ideas, Labile, Manic, Psychomotor agitation, Psychomotor depression, Tangential speech, Visual hallucinations Course - Re-evaluation Re-evalutation: 08/05/19 15:08 I reviewed patient's labs were within normal limits, her bilateral hip and pelvis x-rays showed no bony abnormalities on my review of the image. She does have a large amount of rectal stool burden. No evidence of obvious degenerative joint disease. educated on hardshiops and potential long difficult path to really tackling chronic pain at its roots and in multimodal pt invested ways to reestablishing functions, but that i am worried b/c affecting her functioning in obvious ways. neg opioid screen which i informed was litte unusual if takes her oxycodone daily says she rarely uses at that point. they understood i wouldn't be able to significantly make changes in her overall functinoing or pain levels in one ed visit rather paramount PCP and multimodal coordination but that often we don't address personal life sometimes deperssion. she became tearful tjey both acknowledge it's not good for her to be so isolated and to not be taking care of herself. i educated working in any capacity thgough there is pain actually shown to help in senior care plan. she agreed to try rectal digital disimpaction if there was any most distal impaction, and if not we'd try enema and start her on appropriate bowel hygiene/regimen. pt/ understand plan of care. she is to ca;l providers in am. we discussed warning sx saddly sensory changes bowel/bladder incont/retention unabgle to pee, f/c/s, true paralysis paresis. educated must cont antispasmodics, baclofen since can cause dangerous w/d if stopped abruptly. gave 1-2 doses valium to assist w/ sleep since that i think is one thing that is acutely making things worse w/ forewarning it's not good method that sleep hygeienve recovery also has to be done over time in little steps. 08/12/19 16:33 - Vital Signs Vital signs: Temp Pulse Resp BP Pulse Ox 98.5 F 96 18 151/98 H 98 08/05/19 21:08 08/05/19 21:08 08/05/19 21:08 08/05/19 21:08 08/05/19 21:08 - Laboratory Result Diagrams: 08/05/19 13:50 08/05/19 13:50 Laboratory results interpreted by me: 08/05/19 08/05/19 08/05/19 13:20 13:50 13:50 WBC 3.2 L RBC 3.56 L Hgb 11.3 L Hct 33.1 L ESR Sodium 145.4 H Chloride 111 H AST 53 H C-React Prot High Sens Total Protein 8.4 H TSH Urine Blood SMALL H Ur Leukocyte Esterase LARGE H 08/05/19 08/05/19 08/05/19 13:50 13:50 13:50 WBC RBC Hgb Hct ESR 45 H Sodium Chloride AST C-React Prot High Sens 6.3160 H Total Protein TSH 4.74 H Urine Blood Ur Leukocyte Esterase - Diagnostic Test Radiology reviewed: Image reviewed, Reports reviewed Radiology results interpreted by me: 08/12/19 16:33 (-) hip/pelvic XR Discharge - Discharge Clinical Impression: Cystitis, Chronic back pain greater than 3 months duration, Muscle spasms of both lower extremities Condition: Poor Disposition: HOME, SELF-CARE Additional Instructions: Please call your primary care physician tomorrow first thing to alert of your ED visit and your increased muscle spasms and pain, I recommend referral for a PT/OT/even home health evaluation since you are having difficulty transferring from chair to bed and more more difficulty bearing weight. Please start using the MiraLAX once a day if you still are not having regular bowel movements increase to twice a day and then you may even need to take up to 3 or 4 times a day until stools are pudding like consistency. Please take the antibiotic as prescribed every day twice a day for 7 days and complete the entire course. Please return or seek medical attention if you have fever over 100.4, vomiting. Prescriptions: Diazepam [Valium 5 mg Tablet] 5 mg PO QHS PRN 3 Days #3 tablet PRN Reason: Muscle Spasms Cephalexin [Cephalexin 500 MG Tablet] 1 tab PO BID 7 Days #14 tablet Polyethylene Glycol 3350 [Miralax] 1 cap PO DAILY PRN #1 bottle PRN Reason: use once day 2keep stool soft Referrals: ABHI DOMINGUEZ MD [Primary Care Provider] - Follow up as needed
[2019-08-05] MEDS ORDERED: ACETAMINOPHEN 325 MG TABLET PO ONE (13:48)
[2019-08-05] MEDS ORDERED: OXYCODONE HCL IR 5 MG TABLET PO ONE (13:49)
[2019-08-05] MEDS ORDERED: DIAZEPAM 5 MG TABLET PO ONE (13:50)
[2019-08-05 14:00] LABS: ABSOLUTE LYMPHOCYTES (AUTO) 0.9 10^3/uL (0.5-4.7); ABSOLUTE MONOCYTES (AUTO) 0.2 10^3/uL (0.1-1.4); ABSOLUTE NEUT (AUTO) 2.1 10^3/uL (1.7-8.2); BASOPHILS % (AUTO) 1.1 % (0-2); EOSINOPHILS % (AUTO) 0.9 % (0-6); HEMATOCRIT 33.1 % (36.0-47.0); HEMOGLOBIN 11.3 g/dL (12.0-15.5); MEAN CORPUSCULAR HEMOGLOBIN 31.7 pg (27.0-33.4); MEAN CORPUSCULAR VOLUME 93 fl (80-97); MONOCYTES % (AUTO) 5.6 % (3-13); PLATELET COUNT 228 10^3/uL (150-450); RED BLOOD COUNT 3.56 10^6/uL (3.72-5.28); RED CELL DISTRIBUTION WIDTH 13.9 % (11.5-14.0); SEGMENTED NEUTROPHILS % (AUTO) 65.4 % (42-78); TOTAL CELLS COUNTED % (AUTO) 100 %; WHITE BLOOD COUNT 3.2 10^3/uL (4.0-10.5)
[2019-08-05 14:06] LABS: APPEARANCE,URINE SLIGHTLY-CLOUDY; BILIRUBIN,URINE NEGATIVE (NEGATIVE); COLOR,URINE YELLOW; GLUCOSE, URINE NEGATIVE (NEGATIVE); KETONES,URINE NEGATIVE (NEGATIVE); LEUKOCYTE ESTERASE,URINE LARGE (NEGATIVE); NITRITE,URINE NEGATIVE (NEGATIVE); PROTEIN,URINE NEGATIVE (NEGATIVE); UROBILINOGEN,URINE NEGATIVE mg/dL (<2.0)
[2019-08-05 14:19] LABS: URINE AMPHETAMINES SCREEN NEGATIVE; URINE BARBITURATES SCREEN NEGATIVE; URINE BENZODIAZEPINES SCREEN NEGATIVE; URINE COCAINE SCREEN NEGATIVE; URINE MARIJUANA (THC) SCREEN NEGATIVE; URINE METHADONE SCREEN NEGATIVE; URINE PHENCYCLIDINE SCREEN NEGATIVE
[2019-08-05 14:24] LABS: ALBUMIN 4.5 g/dL (3.5-5.0); ALKALINE PHOSPHATASE 77 U/L (38-126); ANION GAP 12 (5-19); ASPARTATE AMINO TRANSFERASE 53 U/L (14-36); BILIRUBIN,DIRECT 0.2 mg/dL (0.0-0.4); BILIRUBIN,TOTAL 0.9 mg/dL (0.2-1.3); BLOOD UREA NITROGEN 20 mg/dL (7-20); CALCIUM 10.1 mg/dL (8.4-10.2); CARBON DIOXIDE 22 mmol/L (22-30); CHLORIDE 111 mmol/L (98-107); GLUCOSE 84 mg/dL (75-110); POTASSIUM 4.7 mmol/L (3.6-5.0); TOTAL PROTEIN 8.4 g/dL (6.3-8.2)
--- NOTE | 2019-08-05 15:35 | RADIOLOGY REPORT (SQ) ---
EXAM DESCRIPTION: HIP BILATERAL COMPLETED DATE/TIME: 08/05/2019 3:04 pm REASON FOR STUDY: acute on chronic R>L hip pain COMPARISON: 12/18/2018 NUMBER OF VIEWS: Two views. TECHNIQUE: AP pelvis and additional frog-leg view of the right hip. LIMITATIONS: None. FINDINGS: MINERALIZATION: Normal. RIGHT HIP: No fracture or dislocation. No worrisome bone lesions. LEFT HIP: No fracture or dislocation. No worrisome bone lesions. PELVIS: No fracture. SACRUM: No fracture or dislocation. No worrisome bone lesions. There is asymmetric right inferior sa croiliac joint sclerosis. SOFT TISSUES: No findings. OTHER: Stool balls in the rectum. IMPRESSION: 1. No fracture or other radiographic abnormality of the right hip. The joint space is well preserved. MRI may be used to further evaluate unexplained hip pain. 2. Redemonstrated asymmetric right inferior sacroiliac joint sclerosis, which may be symptomatic. TECHNICAL DOCUMENTATION: JOB ID: [id number] [employer]- All Rights Reserved Reading location - IP/workstation name: [email or web address]
[2019-08-05] MEDS ORDERED: KETOROLAC TROMETHAMINE INJ/PF 30 MG/1 ML SDV IV ONE (15:49)
[2019-08-05] MEDS ORDERED: NORMAL SALINE 1000 ML 1,000 ML IV ONE (15:49)
[2019-08-05] MEDS ORDERED: DIAZEPAM INJ 10 MG/2 ML DISP.SYRIN IV ONE (18:12)
[2019-08-05] MEDS ORDERED: MINERAL OIL 30 ML UDCUP ONE (18:30)
[2019-08-05 21:09] VITALS: BP 151/98
== END 2019-08-05 21:08 | disposition home or self-care (01) ==
LOC: ER 12:39
DX: N30.90 Cystitis, unspecified without hematuria (principal); G89.29 Other chronic pain; M62.838 Other muscle spasm; F17.200 Nicotine dependence, unspecified, uncomplicated; I10 Essential (primary) hypertension; M54.9 Dorsalgia, unspecified
CPT/HCPCS: 99284; 96361; 96374; 96375; 36415; 84443; 85025; 85652; 80053; 81001; 80307; 86141; 73522; J3360; J1885; J3490; J7030

== ENCOUNTER → 2020-03-29 | Outpatient (CLI) | payer BC ==
--- NOTE | 2020-03-29 09:59 | RADIOLOGY REPORT (SQ) ---
EXAM DESCRIPTION: C SP 6 OR MORE VIEWS IMAGES COMPLETED DATE/TIME: 03/29/2020 9:05 am REASON FOR STUDY: DEGENERATIVE DISC DISEASE - CERVICAL M50.30 OTHER CERVICAL DISC DEGENERATION, UNS P CERVICAL REGIO COMPARISON: None. NUMBER OF VIEWS: Seven views. TECHNIQUE: AP, lateral, obliques, flexion, extension, and odontoid radiographic images acquired of t he cervical spine. LIMITATIONS: None. FINDINGS: MINERALIZATION: Osteopenia. ALIGNMENT: Anatomic. FLEXION/EXTENSION: No instability. VERTEBRAE: Vertebral bodies of normal height. DISCS: Multilevel degenerative disc disease most marked C4-5, C5-6, C6-7 with a large osteophytes dis c space narrowing. FORAMINA: No osteophytes or foraminal narrowing. LATERAL AND POSTERIOR ELEMENTS: Facets, lateral masses, and spinous processes without significant fin dings. HARDWARE: None in the spine. SOFT TISSUES: No masses or calcifications. Lung apices clear. OTHER: No other significant finding. IMPRESSION: Multilevel degenerative disc disease. NO INSTABILITY ON FLEXION/EXTENSION. TECHNICAL DOCUMENTATION: JOB ID: [id number] [employer]- All Rights Reserved Reading location - IP/workstation name: [email or web address]
== END ==
LOC: OD 08:10
PROVIDERS: ATTEND Pain Medicine Pain Medicine
DX: M50.323 Other cervical disc degeneration at C6-C7 level (principal)
CPT/HCPCS: 72052